=== PATIENT | female | born 1935 | race Caucasian/White ===

== ENCOUNTER 2018-07-16 12:03 | Inpatient (IN) | payer MEDICARE ==
--- NOTE | 2018-07-16 12:13 | ER Document Report ---
ED General - General Stated Complaint: POSSIBLE STROKE Time Seen by Provider: 07/16/18 12:12 Notes: 83-year-old female to the emergency department for evaluation of altered mental status. Patient apparently had some difficulty with speech earlier today. EMS arrived and noted that she had right-sided facial droop and right upper extremity weakness. Unknown time of onset but last known time that she was well was sometime last night. Daughter arrived as well. Did confirm that there was something that was definitely not baseline for her. EMS transported here. Due to the unknown time of onset and last known well was approximately 12 hours ago patient was brought to her room but not immediately taken to CT scan. By the time this physician arrived to evaluate the patient patient's symptoms had 100% resolved. - HPI Onset/Duration: Better Quality of pain: No pain - Related Data Allergies/Adverse Reactions: No Known Allergies Allergy (Unverified 07/16/18 12:21) Past Medical History - General Information source: Patient, Relative, [facility] Records - Social History Smoking Status: Never Smoker Cigarette use (# per day): No Frequency of alcohol use: None Drug Abuse: None Lives with: Jail Family History: Reviewed & Not Pertinent - Medical History Notes: Dementia/Alzheimer's. Review of Systems - Review of Systems Notes: Constitutional: denies: Chills, Diaphoresis, Fever, Malaise, Weakness EENT: denies: Eye discharge, Blurred vision, Tearing, Double vision, Nose congestion, Nose discharge, Throat swelling, Mouth pain Cardiovascular: denies: Palpitations, Heart racing, Orthopnea, Dyspnea, Chest pain Respiratory: denies: Cough, Hurts to breathe, Wheezing, Shortness of breath Gastrointestinal: denies: Abdominal pain, Diarrhea, Nausea, Vomiting, Black stools, bright red blood in stool Genitourinary: denies: Burning, Dysuria, Discharge, Frequency, Flank pain, Hematuria Musculoskeletal: denies: Joint pain, Joint swelling, Muscle pain, Muscle stiffness, back pain Hematologic/Lymphatic: denies: Anemia, Easy bleeding, Easy bruising, Blood clots Neurological/Psychological: Reported slurred speech and right upper extremity weakness Skin: No lesions, no masses,. Patient has numerous areas of skin tears due to frail skin. Multiple chronic stages of healing. Physical Exam - Vital signs Vitals: Resp 18 07/16/18 12:16 Interpretation: Normal - General General appearance: Appears well, Alert - HEENT Head: Normocephalic, Atraumatic Eyes: Normal Pupils: PERRL Neck: Normal - Respiratory Respiratory status: No respiratory distress Chest status: Nontender Breath sounds: Normal Chest palpation: Normal - Cardiovascular Rhythm: Regular Heart sounds: Normal auscultation Murmur: No - Abdominal Inspection: Normal Distension: No distension Bowel sounds: Normal Tenderness: Nontender Organomegaly: No organomegaly - Extremities General upper extremity: Normal inspection, Nontender General lower extremity: Normal inspection, Nontender, Other - Remarkable stiffness and range of motion of the knees bilaterally - Neurological Cognition: Short term memory loss Orientation: AAOx4 [place] Coma Scale Eye Opening: Spontaneous [place] Coma Scale Verbal: Oriented Tank Coma Scale Motor: Obeys Commands Tank Coma Scale Total: 15 Speech: Normal Cranial nerves: Normal Cerebellar coordination: Normal Additional motor exam normals: Equal transport conductor. No: Pronator drift Sensory: Normal - Skin Skin Temperature: Warm Skin Moisture: Dry Skin Color: Other - Multiple areas of skin tears bilateral lower extremities with chronic appearance. Course - Re-evaluation Re-evalutation: 07/16/18 13:15 At this time patient's symptoms are mostly resolved. Not a good candidate for an MRI as patient has a pacemaker. Will do head CT basic labs and reassess. 07/16/18 15:05 Labs reveal quite significant UTI. We will treat her with some antibiotics and fluid at this time. Blood sugar was a little low but not dangerous. We will give her some D5 half-normal while giving her some antibiotics. Had a long discussion with the patient's daughter. Explained that with severe dementia and worsening neurological symptoms there is not a whole lot that we could do. She is understandable. Has a safe place to go. At this time will reevaluate after antibiotics are complete versus admitting. At this time I favor discharge. - Vital Signs Vital signs: Temp Pulse Resp BP Pulse Ox 97.7 F 62 19 143/80 H 93 07/16/18 12:36 07/16/18 13:17 07/16/18 14:01 07/16/18 14:01 07/16/18 14:01 - Laboratory Result Diagrams: 07/16/18 13:15 07/16/18 14:05 Laboratory results interpreted by me: 07/16/18 07/16/18 07/16/18 13:15 13:26 14:05 RBC 3.64 L Hgb 11.4 L Hct 32.4 L RDW 14.4 H Glucose 69 L Total Protein 5.9 L Albumin 2.7 L Urine Protein 30 H Urine Blood SMALL H Urine Nitrite POSITIVE H Urine Urobilinogen 2.0 H Ur Leukocyte Esterase LARGE H - EKG Interpretation by Me Additional EKG results interpreted by me: 07/16/18 13:16 Atrial paced complexes. No obvious ST elevation or depression. No significant change from prior. Discharge - Discharge Clinical Impression: Delirium due to another medical condition Urinary tract infection Qualifiers: Urinary tract infection type: site unspecified Hematuria presence: without hematuria Qualified Code(s): N39.0 - Urinary tract infection, site not specified Condition: Good Disposition: HOME-SNF (ED ONLY) Instructions: Urinary Tract Infection ([facility]), Altered Mental Status ([facility]) Additional Instructions: Continue to keep a close eye on patient's symptoms. In the event that she is getting worse please have her reevaluated. It does not appear that she has had a massive stroke. We did find a very significant bladder infection. We feel that it is best to treat her at this time. We will use antibiotics for the next week. This should clear. Encourage hydration and nutrition. Return immediately for any worsening symptoms or concerns. Prescriptions: Cefdinir [Omnicef 300 mg Capsule] 1 cap PO BID 7 Days #14 capsule Referrals: SANIA STEVENS MD [Primary Care Provider] - Follow up as needed
--- NOTE | 2018-07-16 13:21 | RADIOLOGY REPORT (SQ) ---
EXAM DESCRIPTION: CT HEAD WITHOUT COMPLETED DATE/TIME: 07/16/2018 1:03 pm REASON FOR STUDY: altered mental status COMPARISON: None. TECHNIQUE: Axial images acquired through the brain without intravenous contrast. Images reviewed wi th bone, brain and subdural windows. Additional sagittal and coronal reconstructions were generated. Images stored on PACS. All CT scanners at this facility use dose modulation, iterative reconstruction, and/or weight based d osing when appropriate to reduce radiation dose to as low as reasonably achievable (ALARA). [facility]: Dose Right [facility]: CareDose [facility]: Dose Right [facility]: Teradose 4D [facility]: Smart Futon RADIATION DOSE: CT Rad equipment meets quality standard of care and radiation dose reduction techniq ues were employed. CTDIvol: 53.2 - 55.2 mGy. DLP: 2046 mGy-cm. mGy. LIMITATIONS: None. FINDINGS: VENTRICLES: Prominent ventricles secondary to involutional atrophy. CEREBRUM: No masses. No hemorrhage. No midline shift. No evidence for acute infarction. Extensive areas of low density in the white matter most likely chronic small vessel ischemic changes. CEREBELLUM: No masses. No hemorrhage. No alteration of density. No evidence for acute infarction. EXTRAAXIAL SPACES: No fluid collections. No masses. ORBITS AND GLOBE: No intra- or extraconal masses. Normal contour of globe without masses. CALVARIUM: No fracture. PARANASAL SINUSES: No fluid or mucosal thickening. SOFT TISSUES: No mass or hematoma. OTHER: No other significant finding. IMPRESSION: MICROVASCULAR ISCHEMIA AND GENERALIZED ATROPHY. NO ACUTE IMAGING FINDINGS IN THE BRAIN EVIDENCE OF ACUTE STROKE: NO. COMMENT: Quality ID # [id number]: Final reports with documentation of one or more dose reduction techniques (e.g., Automated exposure control, adjustment of the mA and/or kV according to patient size, use of iterative reconstruction technique) TECHNICAL DOCUMENTATION: JOB ID: [id number] [employer]- All Rights Reserved Reading location - IP/workstation name: [email or web address]
[2018-07-16 13:29] LABS: ABSOLUTE EOSINOPHILS # (AUTO) 0.1 10^3/uL (0.0-0.6); ABSOLUTE LYMPHOCYTES (AUTO) 1.6 10^3/uL (0.5-4.7); ABSOLUTE MONOCYTES (AUTO) 0.7 10^3/uL (0.1-1.4); ABSOLUTE NEUT (AUTO) 6.7 10^3/uL (1.7-8.2); BASOPHILS % (AUTO) 0.5 % (0-2); EOSINOPHILS % (AUTO) 1.3 % (0-6); HEMATOCRIT 32.4 % (36.0-47.0); HEMOGLOBIN 11.4 g/dL (12.0-15.5); LYMPHOCYTES % (AUTO) 17.3 % (13-45); MEAN CORPUSCULAR HEMOGLOBIN 31.3 pg (27.0-33.4); MEAN CORPUSCULAR HGB CONC 35.2 g/dL (32.0-36.0); MEAN CORPUSCULAR VOLUME 89 fl (80-97); PLATELET COUNT 350 10^3/uL (150-450); RED BLOOD COUNT 3.64 10^6/uL (3.72-5.28); RED CELL DISTRIBUTION WIDTH 14.4 % (11.5-14.0); SEGMENTED NEUTROPHILS % (AUTO) 72.9 % (42-78); TOTAL CELLS COUNTED % (AUTO) 100 %; WHITE BLOOD COUNT 9.2 10^3/uL (4.0-10.5)
[2018-07-16 13:50] LABS: APPEARANCE,URINE CLOUDY; BILIRUBIN,URINE NEGATIVE (NEGATIVE); GLUCOSE, URINE NEGATIVE (NEGATIVE); KETONES,URINE NEGATIVE (NEGATIVE); LEUKOCYTE ESTERASE,URINE LARGE (NEGATIVE); NITRITE,URINE POSITIVE (NEGATIVE); PROTEIN,URINE 30 mg/dL (NEGATIVE); URINE SPECIFIC GRAVITY 1.018
[2018-07-16 13:52] LABS: COLOR,URINE YELLOW
--- NOTE | 2018-07-16 13:53 | RADIOLOGY REPORT (SQ) ---
EXAM DESCRIPTION: CHEST SINGLE VIEW COMPLETED DATE/TIME: 07/16/2018 1:09 pm REASON FOR STUDY: sob COMPARISON: None. EXAM PARAMETERS: NUMBER OF VIEWS: One view. TECHNIQUE: Single frontal radiographic view of the chest acquired. RADIATION DOSE: NA LIMITATIONS: None. FINDINGS: LUNGS AND PLEURA: Left hemidiaphragm not well seen, likely due to large retrocardiac hiata l hernia. Basilar airspace disease could not entirely be excluded. Right lung grossly clear. No pleural effusions or pneumothorax. MEDIASTINUM AND HILAR STRUCTURES: Large retrocardiac density likely a hiatal hernia containing the ma jority of the stomach. Fullness in the right paratracheal region likely due to substernal goiter HEART AND VASCULAR STRUCTURES: Marked cardiomegaly BONES: Old right humeral neck fracture. HARDWARE: Left-sided dual lead pacemaker OTHER: No other significant finding. IMPRESSION: Cardiomegaly. Large retrocardiac hiatal hernia. Left basilar airspace disease could not entirely be excluded TECHNICAL DOCUMENTATION: JOB ID: [id number] [employer]- All Rights Reserved Reading location - IP/workstation name: [email or web address]
[2018-07-16] MEDS ORDERED: CEFTRIAXONE INJ 1000 MG VIAL IV ONE (14:17)
[2018-07-16] MEDS ORDERED: NORMAL SALINE 500 ML IV ONE (14:17)
[2018-07-16 14:31] LABS: ALANINE AMINOTRANSFERASE 10 U/L (9-52); ALBUMIN 2.7 g/dL (3.5-5.0); ALKALINE PHOSPHATASE 111 U/L (38-126); ANION GAP 10 (5-19); ASPARTATE AMINO TRANSFERASE 22 U/L (14-36); BILIRUBIN,DIRECT 0.1 mg/dL (0.0-0.4); BILIRUBIN,TOTAL 0.6 mg/dL (0.2-1.3); BLOOD UREA NITROGEN 18 mg/dL (7-20); CALCIUM 8.9 mg/dL (8.4-10.2); CARBON DIOXIDE 29 mmol/L (22-30); CHLORIDE 101 mmol/L (98-107); GLUCOSE 69 mg/dL (75-110); POTASSIUM 3.9 mmol/L (3.6-5.0); SODIUM 139.5 mmol/L (137-145); TOTAL PROTEIN 5.9 g/dL (6.3-8.2)
[2018-07-16] MEDS ORDERED: DEXTROSE 5%-1/2 NORMAL SALINE 500 ML IV ONE (14:56)
--- NOTE | 2018-07-16 18:12 | EKG REPORT ---
SEVERITY:- ABNORMAL ECG - ATRIAL-PACED COMPLEXES PROBABLE INFERIOR INFARCT, AGE INDETERMINATE NONSPECIFIC T ABNORMALITIES, ANT-LAT LEADS BORDERLINE PROLONGED QT INTERVAL : Confirmed by: Raul Aparicio MD 16-Jul-2018 18:11:40
[2018-07-16] MEDS ORDERED: DEXTROSE 50%-WATER 25 GM/50 ML DISP.SYRIN IV ONE (19:01)
[2018-07-16] MEDS ORDERED: DEXTROSE 5%-1/2 NORMAL SALINE 1,000 ML IV ONE (19:01)
[2018-07-16] MEDS ORDERED: DEXTROSE 40% GEL 15 GM TUBE PO PRN ×2 (19:26)
[2018-07-16] MEDS ORDERED: ACETAMINOPHEN 325 MG TABLET PO PRN (19:26)
[2018-07-16] MEDS ORDERED: GLUCAGON,HUMAN RECOMB 1 MG INJ IM PRN (19:26)
[2018-07-16] MEDS ORDERED: DEXTROSE 50%-WATER 25 GM/50 ML DISP.SYRIN IV PRN (19:26)
[2018-07-16] MEDS ORDERED: IPRATROPIUM/ALBUTEROL 0.5-2.5 MG/3 ML AMPUL NEB PRN (19:26)
[2018-07-16] MEDS: HEPARIN SOD (PORCINE) 5,000 UNIT/ML 1 ML SYRINGE SUBCUT SCH (21:29)
[2018-07-16] MEDS: DEXTROSE 50%-WATER 25 GM/50 ML DISP.SYRIN IV PRN (21:34)
[2018-07-17] MEDS: DEXTROSE 50%-WATER 25 GM/50 ML DISP.SYRIN IV PRN (04:35)
[2018-07-17] MEDS: POTASSI CL 20 MEQ/D5-1/2NS 1L 1000 ML IV PRN ×2 (04:48→20:32)
[2018-07-17 05:18] LABS: ABSOLUTE EOSINOPHILS # (AUTO) 0.1 10^3/uL (0.0-0.6); ABSOLUTE LYMPHOCYTES (AUTO) 1.3 10^3/uL (0.5-4.7); ABSOLUTE MONOCYTES (AUTO) 0.4 10^3/uL (0.1-1.4); ABSOLUTE NEUT (AUTO) 4.6 10^3/uL (1.7-8.2); BASOPHILS % (AUTO) 0.4 % (0-2); EOSINOPHILS % (AUTO) 2.1 % (0-6); HEMATOCRIT 30.2 % (36.0-47.0); HEMOGLOBIN 10.3 g/dL (12.0-15.5); LYMPHOCYTES % (AUTO) 19.7 % (13-45); MEAN CORPUSCULAR HEMOGLOBIN 30.6 pg (27.0-33.4); MEAN CORPUSCULAR HGB CONC 34.1 g/dL (32.0-36.0); MEAN CORPUSCULAR VOLUME 90 fl (80-97); MONOCYTES % (AUTO) 5.6 % (3-13); PLATELET COUNT 304 10^3/uL (150-450); RED BLOOD COUNT 3.36 10^6/uL (3.72-5.28); RED CELL DISTRIBUTION WIDTH 14.3 % (11.5-14.0); SEGMENTED NEUTROPHILS % (AUTO) 72.2 % (42-78); TOTAL CELLS COUNTED % (AUTO) 100 %; WHITE BLOOD COUNT 6.4 10^3/uL (4.0-10.5)
[2018-07-17] MEDS: HEPARIN SOD (PORCINE) 5,000 UNIT/ML 1 ML SYRINGE SUBCUT SCH ×3 (05:30→22:11)
--- NOTE | 2018-07-17 05:36 | PDOC H&P ---
History of Present Illness Admission Date/PCP: 07/16/18 19:18 SANIA STEVENS MD Patient complains of: Altered mental status History of Present Illness: ALIYAH DENISE is a 83 year old female assisted living resident with a past medical history of advanced dementia who is unable to provide any history whatsoever. Is brought to the emergency room for evaluation of altered mental status. In the emergency room she is found to have hypoglycemia and pyuria. She is started on dextrose and empiric antibiotics then referred to the hospitalist for admission. Patient denies pain and states feels better but unable to provide further clarification. No known changes to medications. Past Medical History Cardiac Medical History: Reports: Hyperlipidema Denies: Congestive Heart Failure, Myocardial Infarction, Hypertension Pulmonary Medical History: Denies: Asthma, Bronchitis, Chronic Obstructive Pulmonary Disease (COPD), Pneumonia, Tuberculosis Neurological Medical History: Denies: Seizures Renal/ Medical History: Denies: End Stage Renal Disease GI Medical History: Reports: Hiatal Hernia Denies: Cirrhosis, Gastroesophageal Reflux Disease Musculoskeltal Medical History: Reports: Arthritis - generalized Psychiatric Medical History: Reports: Depression Denies: Bipolar Disorder Hematology: Reports: Anemia, Bleeding Tendencies Past Surgical History Past Surgical History: Reports: Hysterectomy Social History Information Source: Emergency Med Personnel, [facility] Records Lives with: Assisted Smoking Status: Former Smoker Frequency of Alcohol Use: None Drugs: None - Advance Directive Resuscitation Status: Do Not Intubate Family History Family History: Other - Unobtainable Parental Family History Reviewed: No - Unobtainable Children Family History Reviewed: No Sibling(s) Family History Reviewed.: No Medication/Allergy Home Medications: Acetaminophen [Tylenol Extra Strength 500 mg Tablet] 500 mg PO Q4HP PRN Alendronate Sodium [Fosamax 70 mg Tablet] 70 mg PO Q7D 07/16/18 Ascorbic Acid [Vitamin C 500 mg Tablet] 500 mg PO QAM 07/16/18 Aspirin [Aspirin 81 mg Chewable Tablet] 81 mg PO QAM 07/16/18 Bupropion HCl [Wellbutrin Xl 150 mg 24hr Tablet] 150 mg PO QAM 07/16/18 Cholecalciferol (Vitamin D3) [Vitamin D3 400 Unit Tablet] 400 unit PO QAM Citalopram Hydrobromide [Celexa 40 mg Tablet] 40 mg PO DAILY@199907/16/18 Cyanocobalamin (Vitamin B-12) [Vitamin B-12 1000 mcg Tablet] 1,000 mcg PO QAM Diclofenac Sodium [Voltaren] 4 gm TOP QID 07/16/18 Docusate Sodium [Colace 100 mg Capsule] 100 mg PO DAILY@199907/16/18 Guaifenesin [Robafen] 10 ml PO Q4HP PRN 07/16/18 Guaifenesin/D-Methorphan Hb [Robafen-Dm Syrup] 10 ml PO Q4HP PRN 07/16/18 Ketoprofen 1 applic TOP QID 07/16/18 Levothyroxine Sodium [Synthroid 0.05 mg Tablet] 0.05 mg PO Q6AM 07/16/18 Loperamide HCl [Anti-Diarrhea] 4 mg PO ASDIR PRN 07/16/18 Mag Hydrox/Al Hydrox/Simeth [Maalox Plus Susp 30 Udcup] 30 ml PO Q4HP PRN Magnesium Hydroxide [Milk of Magnesia 30 ml Udcup] 30 ml PO ASDIR PRN 07/16/18 Melatonin/Pyridoxine [Melatonin 5 mg Tablet] 5 mg PO HSP PRN 07/16/18 Allergies/Adverse Reactions: No Known Allergies Allergy (Unverified 07/16/18 12:21) Review of Systems ROS unobtainable: Due to mental status Physical Exam Vital Signs: Temp Pulse Resp BP Pulse Ox 97.8 F 66 18 157/73 H 100 07/17/18 04:00 07/17/18 04:00 07/17/18 04:00 07/17/18 04:00 07/17/18 04:00 Intake & Output 07/15/18 07/16/18 07/17/18 11:59 11:59 11:59 Intake Total 1000 Balance 1000 Weight 54.9 kg General appearance: PRESENT: no acute distress, cooperative, well-developed, well-nourished, other - Chronically ill-appearing, temporal wasting with flexion contractures and skin tears of all 4 extremities Head exam: PRESENT: atraumatic, normocephalic Eye exam: PRESENT: conjunctiva pink, EOMI, PERRLA. ABSENT: scleral icterus Ear exam: PRESENT: normal external ear exam Mouth exam: PRESENT: moist, tongue midline Neck exam: ABSENT: carotid bruit, JVD, lymphadenopathy, thyromegaly Respiratory exam: PRESENT: clear to auscultation janeen. ABSENT: rales, rhonchi, wheezes Cardiovascular exam: PRESENT: RRR. ABSENT: diastolic murmur, rubs, systolic murmur Pulses: PRESENT: normal dorsalis pedis pul Vascular exam: PRESENT: normal capillary refill GI/Abdominal exam: PRESENT: normal bowel sounds, soft. ABSENT: distended, guarding, mass, organolmegaly, rebound, tenderness Rectal exam: PRESENT: deferred Extremities exam: PRESENT: full ROM. ABSENT: calf tenderness, clubbing, pedal edema Neurological exam: PRESENT: alert, awake, oriented to person, oriented to place , oriented to time, oriented to situation, CN II-XII grossly intact. ABSENT: motor sensory deficit Psychiatric exam: PRESENT: appropriate affect, normal mood. ABSENT: homicidal ideation, suicidal ideation Skin exam: PRESENT: dry, intact, warm. ABSENT: cyanosis, rash Results Laboratory Results: 07/17/18 04:46 07/17/18 04:46 WBC 6.4 RBC 3.36 L Hgb 10.3 L Hct 30.2 L MCV 90 MCH 30.6 MCHC 34.1 RDW 14.3 H Plt Count 304 Seg Neutrophils % 72.2 Lymphocytes % 19.7 Monocytes % 5.6 Eosinophils % 2.1 Basophils % 0.4 Absolute Neutrophils 4.6 Absolute Lymphocytes 1.3 Absolute Monocytes 0.4 Absolute Eosinophils 0.1 Absolute Basophils 0.0 Impressions: Head CT 07/16/18 00:00 IMPRESSION: MICROVASCULAR ISCHEMIA AND GENERALIZED ATROPHY. NO ACUTE IMAGING FINDINGS IN THE BRAIN EVIDENCE OF ACUTE STROKE: NO. Chest X-Ray 07/16/18 12:39 IMPRESSION: Cardiomegaly. Large retrocardiac hiatal hernia. Left basilar airspace disease could not entirely be excluded Assessment & Plan - Diagnosis (1) Hypoglycemia Is this a current diagnosis for this admission?: Yes Plan: Unclear cause suspected hypoglycemic agent, D5 half-normal saline with 20 of potassium, Accu-Cheks every hour hypoglycemic protocol follow-up chemistry (2) Encephalopathy acute Is this a current diagnosis for this admission?: Yes Plan: Acute on chronic secondary to #1. Supportive care (3) Dementia Is this a current diagnosis for this admission?: Yes Plan: Supportive care (4) Urinary tract infection Qualifiers: Urinary tract infection type: site unspecified Hematuria presence: without hematuria Qualified Code(s): N39.0 - Urinary tract infection, site not specified Is this a current diagnosis for this admission?: Yes Plan: Urinary tract infection, empiric antibiotics, follow-up CBC, blood and urine culture - Time Time Spent: 50 to 70 Minutes - Inpatient Certification Medical Necessity: Need Close Monitoring Due to Risk of Patient Decompensation
[2018-07-17 05:47] LABS: ANION GAP 7 (5-19); BLOOD UREA NITROGEN 12 mg/dL (7-20); CARBON DIOXIDE 29 mmol/L (22-30); CHLORIDE 100 mmol/L (98-107); GLUCOSE 252 mg/dL (75-110); SODIUM 136.1 mmol/L (137-145)
[2018-07-17] MEDS: CEFTRIAXONE SODIUM 1,000 MG in DEXTROSE 5%-WATER 50 ML IV SCH (09:58)
[2018-07-17] MEDS ORDERED: CEFTRIAXONE 1 GM/D5W RTU 1 GM/50 ML RTUPB IV SCH (10:00)
[2018-07-17] MEDS ORDERED: (PENDING PHARMACY ID) (Acetaminophen [Tylenol Extra Strength 500 Mg Tablet] 500 MG) PO PRN (14:13)
[2018-07-17] MEDS ORDERED: MAG HYDROX/AL HYDROX/SIMETH SUSP 30 ML UDCUP PO PRN (14:13)
[2018-07-17] MEDS ORDERED: (PENDING PHARMACY ID) (Alendronate Sodium [Fosamax 70 Mg Tablet] 70 MG) PO SCH (14:15)
--- NOTE | 2018-07-17 14:17 | PDOC PROGRESS REPORT ---
Subjective Progress Note for:: 07/17/18 Subjective:: 83 y/o female resident of Assisted Living Facility, admitted overnight with altered mental status and found to have hypoglycemia and UTI. Currently, patient is awake, daughter at bedside. Reports doing much better, mental status improved. Eating better. No cp or sob, no f/c. Reason For Visit: HYPOGLYCEMIA ENCEPHALOPATHY DEMENTIA UTI Physical Exam Vital Signs: Temp Pulse Resp BP Pulse Ox 98.2 F 68 18 146/64 H 99 07/17/18 11:36 07/17/18 11:36 07/17/18 11:36 07/17/18 11:36 07/17/18 11:36 Intake & Output 07/16/18 07/17/18 07/18/18 06:59 06:59 06:59 Intake Total 1000 50 Balance 1000 50 Weight 54.9 kg GENERAL: Well-developed, no acute distress HEENT: Normocephalic/atraumatic NECK supple, no JVD CARDIOVASCULAR: RRR, normal S1-S2 LUNGS: CTA bilaterally ABDOMEN: Soft, NT, NL bowel sounds EXTREMITIES: No edema, clubbing, cyanosis NEUROLOGICAL: Alert, oriented to name, no acute weakness Results Laboratory Results: 07/17/18 04:46 07/17/18 04:46 07/17/18 07/17/18 04:46 04:46 WBC 6.4 RBC 3.36 L Hgb 10.3 L Hct 30.2 L MCV 90 MCH 30.6 MCHC 34.1 RDW 14.3 H Plt Count 304 Seg Neutrophils % 72.2 Lymphocytes % 19.7 Monocytes % 5.6 Eosinophils % 2.1 Basophils % 0.4 Absolute Neutrophils 4.6 Absolute Lymphocytes 1.3 Absolute Monocytes 0.4 Absolute Eosinophils 0.1 Absolute Basophils 0.0 Sodium 136.1 L Potassium 4.0 Chloride 100 Carbon Dioxide 29 Anion Gap 7 BUN 12 Creatinine 0.55 Est GFR ( Amer) > 60 Est GFR (Non-Af Amer) > 60 Glucose 252 H Calcium 8.0 L Impressions: Head CT 07/16/18 00:00 IMPRESSION: MICROVASCULAR ISCHEMIA AND GENERALIZED ATROPHY. NO ACUTE IMAGING FINDINGS IN THE BRAIN EVIDENCE OF ACUTE STROKE: NO. Chest X-Ray 07/16/18 12:39 IMPRESSION: Cardiomegaly. Large retrocardiac hiatal hernia. Left basilar airspace disease could not entirely be excluded Assessment & Plan - Diagnosis (1) Urinary tract infection Qualifiers: Urinary tract infection type: site unspecified Hematuria presence: without hematuria Qualified Code(s): N39.0 - Urinary tract infection, site not specified Is this a current diagnosis for this admission?: Yes (2) Hypoglycemia Is this a current diagnosis for this admission?: Yes (3) Dementia Is this a current diagnosis for this admission?: Yes (4) Encephalopathy acute Is this a current diagnosis for this admission?: Yes - Plan Summary Plan Summary: Patient improving. Daughter at bedside. Mental status has improved, as has hypoglycemia. Suspect altered mental status secondary to a combination of UTI and hypoglycemia, and hypoglycemia likely secondary to UTI and patient had decreased p.o. intake. She is eating better today. Continue to monitor blood sugars and to hold any anti-hyperglycemic at this time. Urine culture growing gram negative rods, please follow identification and sensitivity. Will continue Rocephin for now. Patient could possibly be discharged back to assisted living facility tomorrow if continues to improve and urine culture bug identified/sensitivities available.
[2018-07-17] MEDS ORDERED: ACETAMINOPHEN SOLN 325 MG/10.15 ML UDCUP PO PRN (14:49)
[2018-07-17] MEDS ORDERED: (PENDING PHARMACY ID) (Diclofenac Sodium [Voltaren] 4 GM) TOP SCH (18:00)
[2018-07-17] MEDS ORDERED: (PENDING PHARMACY ID) (Citalopram Hydrobromide [Celexa 40 Mg Tablet] 40 MG) PO SCH (20:00)
[2018-07-17] MEDS ORDERED: MAGNESIUM HYDROXIDE SUSP 30 ML UDCUP PO PRN (22:00)
[2018-07-17] MEDS: CITALOPRAM HYDROBROMIDE 20 MG TABLET PO SCH (22:10)
[2018-07-17] MEDS: BUPROPION HCL 75 MG TABLET PO SCH (22:10)
[2018-07-17] MEDS: DOCUSATE SODIUM 100 MG CAPSULE PO SCH (22:11)
[2018-07-18] MEDS: LEVOTHYROXINE SODIUM 0.05 MG TABLET PO SCH (06:00)
[2018-07-18] MEDS: HEPARIN SOD (PORCINE) 5,000 UNIT/ML 1 ML SYRINGE SUBCUT SCH ×3 (06:24→21:44)
[2018-07-18] MEDS ORDERED: (PENDING PHARMACY ID) (Bupropion Hcl [Wellbutrin Xl 150 Mg 24hr Tablet] 150 MG) PO SCH (08:00)
[2018-07-18] MEDS: POTASSI CL 20 MEQ/D5-1/2NS 1L 1000 ML IV PRN ×2 (08:46→22:43)
[2018-07-18] MEDS: ASCORBIC ACID 500 MG TABLET PO SCH (09:53)
[2018-07-18] MEDS: CYANOCOBALAMIN (VITAMIN B-12) 1,000 MCG TABLET PO SCH (09:53)
[2018-07-18] MEDS: ASPIRIN 81 MG TABLET, CHEWABLE PO SCH (09:53)
[2018-07-18] MEDS: CHOLECALCIFEROL (D3) 400 UNIT TABLET PO SCH (09:53)
[2018-07-18] MEDS: CEFTRIAXONE SODIUM 1,000 MG in DEXTROSE 5%-WATER 50 ML IV SCH (09:54)
[2018-07-18] MEDS: BUPROPION HCL 75 MG TABLET PO SCH ×2 (09:54→21:44)
--- NOTE | 2018-07-18 17:38 | PDOC PROGRESS REPORT ---
Subjective Progress Note for:: 07/18/18 - seen on rounds this morning and afternoon with daughter Subjective:: seems to be some what confused- knows her name- not sure of her , time/place Reason For Visit: UTI,HYPOGLYCEMIA Physical Exam Vital Signs: Temp Pulse Resp BP Pulse Ox 98.3 F 73 20 167/70 H 98 07/18/18 11:19 07/18/18 14:00 07/18/18 11:19 07/18/18 11:19 07/18/18 11:19 Intake & Output 07/17/18 07/18/18 07/19/18 06:59 06:59 06:59 Intake Total 1000 1290 917 Output Total 1080 Balance 1000 210 917 Weight 121 lb 0.54 oz 134 lb 4.184 oz General appearance: PRESENT: no acute distress Head exam: PRESENT: atraumatic, normocephalic Eye exam: PRESENT: EOMI. ABSENT: scleral icterus Ear exam: PRESENT: normal external ear exam Mouth exam: PRESENT: tongue midline Teeth exam: PRESENT: poor dentation Neck exam: ABSENT: tracheal deviation Respiratory exam: PRESENT: decreased breath sounds - poor inspiratory effort, symmetrical Cardiovascular exam: PRESENT: +S1, +S2 Pulses: PRESENT: +2 pedal pulses bilateral GI/Abdominal exam: PRESENT: normal bowel sounds, soft. ABSENT: tenderness Extremities exam: ABSENT: +2 edema Neurological exam: PRESENT: alert, altered, awake, oriented to person, CN II- XII grossly intact. ABSENT: oriented to place, oriented to time, oriented to situation Skin exam: PRESENT: dry, warm Results Laboratory Results: 07/17/18 04:46 07/17/18 04:46 Impressions: Head CT 07/16/18 00:00 IMPRESSION: MICROVASCULAR ISCHEMIA AND GENERALIZED ATROPHY. NO ACUTE IMAGING FINDINGS IN THE BRAIN EVIDENCE OF ACUTE STROKE: NO. Chest X-Ray 07/16/18 12:39 IMPRESSION: Cardiomegaly. Large retrocardiac hiatal hernia. Left basilar airspace disease could not entirely be excluded Assessment & Plan - Diagnosis (1) Encephalopathy acute Is this a current diagnosis for this admission?: Yes (2) Urinary tract infection Qualifiers: Urinary tract infection type: site unspecified Hematuria presence: without hematuria Qualified Code(s): N39.0 - Urinary tract infection, site not specified Is this a current diagnosis for this admission?: Yes (3) Hypoglycemia Is this a current diagnosis for this admission?: Yes (4) Dementia Is this a current diagnosis for this admission?: Yes - Time Time Spent with patient: 15-24 minutes - Plan Summary Plan Summary: Acute encephalopathy- i think this is acute on chronic encephalopathy- she has underlying dementia- i have spoken with daughter about this today. i think her UTI and hypoglycemia has made her condition worse. she does know her name- not sure about time/place. daughter states she much more worse than her usual self - i am not so sure if she is worse - i think she has advance dementia and she's close to her baseline. i will re-evaluate her tomorrow. CT head shows chronic changes. UTI- c/w Rocephin, started on 07/16/18- her UCx did grow Eneterobacter which is sensitive to rocephin. hopefully we can transition her to PO when ready for discharge Hypoglycemia- unclear etiology. ?UTI vs poor oral intake. she's on D5W - will try to wean her off of it. Diet - in the ED she was thought to be having a stroke and hence placed on a pureed diet- daughter is not happy about this- hence i will order speech and swallow. daughter requests soft food with chopped meat- i have granted her wishes. daughter tells me that is what she was eating at home.
[2018-07-18] MEDS: CITALOPRAM HYDROBROMIDE 20 MG TABLET PO SCH (21:43)
[2018-07-18] MEDS: DOCUSATE SODIUM 100 MG CAPSULE PO SCH (21:44)
[2018-07-19 05:52] LABS: ABSOLUTE BASOPHILS # (AUTO) 0.1 10^3/uL (0.0-0.2); ABSOLUTE EOSINOPHILS # (AUTO) 0.2 10^3/uL (0.0-0.6); ABSOLUTE LYMPHOCYTES (AUTO) 2.3 10^3/uL (0.5-4.7); ABSOLUTE MONOCYTES (AUTO) 0.7 10^3/uL (0.1-1.4); ABSOLUTE NEUT (AUTO) 4.4 10^3/uL (1.7-8.2); EOSINOPHILS % (AUTO) 2.9 % (0-6); HEMATOCRIT 32.8 % (36.0-47.0); LYMPHOCYTES % (AUTO) 29.6 % (13-45); MEAN CORPUSCULAR HEMOGLOBIN 29.7 pg (27.0-33.4); MEAN CORPUSCULAR HGB CONC 33.4 g/dL (32.0-36.0); MEAN CORPUSCULAR VOLUME 89 fl (80-97); MONOCYTES % (AUTO) 9.6 % (3-13); PLATELET COUNT 372 10^3/uL (150-450); RED BLOOD COUNT 3.68 10^6/uL (3.72-5.28); RED CELL DISTRIBUTION WIDTH 14.5 % (11.5-14.0); SEGMENTED NEUTROPHILS % (AUTO) 56.9 % (42-78); TOTAL CELLS COUNTED % (AUTO) 100 %; WHITE BLOOD COUNT 7.8 10^3/uL (4.0-10.5)
[2018-07-19] MEDS: HEPARIN SOD (PORCINE) 5,000 UNIT/ML 1 ML SYRINGE SUBCUT SCH ×3 (05:57→21:47)
[2018-07-19] MEDS: LEVOTHYROXINE SODIUM 0.05 MG TABLET PO SCH (05:57)
[2018-07-19 06:10] LABS: ANION GAP 6 (5-19); BLOOD UREA NITROGEN 6 mg/dL (7-20); CALCIUM 8.6 mg/dL (8.4-10.2); CARBON DIOXIDE 28 mmol/L (22-30); CHLORIDE 105 mmol/L (98-107); GLUCOSE 78 mg/dL (75-110); POTASSIUM 4.3 mmol/L (3.6-5.0); SODIUM 139.3 mmol/L (137-145)
[2018-07-19] MEDS: ASCORBIC ACID 500 MG TABLET PO SCH (08:14)
[2018-07-19] MEDS: CHOLECALCIFEROL (D3) 400 UNIT TABLET PO SCH (08:14)
[2018-07-19] MEDS: ASPIRIN 81 MG TABLET, CHEWABLE PO SCH (08:14)
[2018-07-19] MEDS: CYANOCOBALAMIN (VITAMIN B-12) 1,000 MCG TABLET PO SCH (08:14)
[2018-07-19] MEDS: CEFTRIAXONE SODIUM 1,000 MG in DEXTROSE 5%-WATER 50 ML IV SCH (09:24)
[2018-07-19] MEDS: BUPROPION HCL 75 MG TABLET PO SCH ×2 (09:24→21:47)
--- NOTE | 2018-07-19 13:20 | PDOC PROGRESS REPORT ---
Subjective Progress Note for:: 07/19/18 - seen on rounds this morning Subjective:: remains confused- asks me "what do you want". she told me her first name but unable to answer my other questions. Reason For Visit: UTI,HYPOGLYCEMIA Physical Exam Vital Signs: Temp Pulse Resp BP Pulse Ox 98.2 F 79 16 141/62 H 95 07/19/18 11:16 07/19/18 11:16 07/19/18 11:16 07/19/18 11:16 07/19/18 11:16 Intake & Output 07/18/18 07/19/18 07/20/18 06:59 06:59 06:59 Intake Total 1290 2103 Output Total 1080 700 Balance 210 1403 Weight 134 lb 4.184 oz 130 lb 15.273 oz General appearance: PRESENT: no acute distress Head exam: PRESENT: atraumatic, normocephalic Eye exam: PRESENT: EOMI. ABSENT: scleral icterus Mouth exam: ABSENT: tongue midline Neck exam: ABSENT: tracheal deviation Respiratory exam: PRESENT: clear to auscultation janeen, symmetrical Cardiovascular exam: PRESENT: +S1, +S2 Pulses: PRESENT: +2 pedal pulses bilateral GI/Abdominal exam: PRESENT: normal bowel sounds, soft. ABSENT: tenderness Extremities exam: ABSENT: pedal edema Neurological exam: PRESENT: alert, awake, oriented to person, CN II-XII grossly intact. ABSENT: oriented to place, oriented to time, oriented to situation Skin exam: PRESENT: dry, warm, other - superficial skin tears noted in arms and legs Results Laboratory Results: 07/19/18 05:03 07/19/18 05:03 07/19/18 07/19/18 05:03 05:03 WBC 7.8 RBC 3.68 L Hgb 11.0 L Hct 32.8 L MCV 89 MCH 29.7 MCHC 33.4 RDW 14.5 H Plt Count 372 Seg Neutrophils % 56.9 Lymphocytes % 29.6 Monocytes % 9.6 Eosinophils % 2.9 Basophils % 1.0 Absolute Neutrophils 4.4 Absolute Lymphocytes 2.3 Absolute Monocytes 0.7 Absolute Eosinophils 0.2 Absolute Basophils 0.1 Sodium 139.3 Potassium 4.3 Chloride 105 Carbon Dioxide 28 Anion Gap 6 BUN 6 L Creatinine 0.64 Est GFR ( Amer) > 60 Est GFR (Non-Af Amer) > 60 Glucose 78 Calcium 8.6 Impressions: Head CT 07/16/18 00:00 IMPRESSION: MICROVASCULAR ISCHEMIA AND GENERALIZED ATROPHY. NO ACUTE IMAGING FINDINGS IN THE BRAIN EVIDENCE OF ACUTE STROKE: NO. Chest X-Ray 07/16/18 12:39 IMPRESSION: Cardiomegaly. Large retrocardiac hiatal hernia. Left basilar airspace disease could not entirely be excluded Assessment & Plan - Diagnosis (1) Encephalopathy acute Is this a current diagnosis for this admission?: Yes (2) Urinary tract infection Qualifiers: Urinary tract infection type: site unspecified Hematuria presence: without hematuria Qualified Code(s): N39.0 - Urinary tract infection, site not specified Is this a current diagnosis for this admission?: Yes (3) Hypoglycemia Is this a current diagnosis for this admission?: Yes (4) Dementia Is this a current diagnosis for this admission?: Yes - Time Time Spent with patient: 15-24 minutes - Plan Summary Plan Summary: Acute encephalopathy- she has underlying dementia and not sure what her baseline is- i have spoken with daughter- she believes this is acute. i think her UTI and hypoglycemia has made her condition worse. she does know her name- not sure about time/place. 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 CT head shows chronic changes. UTI- c/w Rocephin, started on 07/16/18- her UCx did grow Eneterobacter which is sensitive to rocephin. hopefully we can transition her to PO when ready for discharge. spoke with daughter today and she's worried about sepsis- wants blood cultures drawn- she's worried her mother has sepsis and hence that is what is causing her mentation to be wors Hypoglycemia- unclear etiology. ?UTI vs poor oral intake. i have stopped her D5 today. encourage PO intake. Diet - in the ED she was thought to be having a stroke and hence placed on a pureed diet- daughter is not happy about this- hence i will order speech and swallow. daughter requests soft food with chopped meat- i have granted her wishes. daughter tells me that is what she was eating at home. disposition- hopefully d/c back to assisted living in AM if her BCx is negative and her hypoglycemia is resolved off the D5
[2018-07-19] MEDS: DOCUSATE SODIUM 100 MG CAPSULE PO SCH (20:10)
[2018-07-19] MEDS: CITALOPRAM HYDROBROMIDE 20 MG TABLET PO SCH (20:10)
[2018-07-20] MEDS: HEPARIN SOD (PORCINE) 5,000 UNIT/ML 1 ML SYRINGE SUBCUT SCH ×3 (05:34→23:54)
[2018-07-20] MEDS: LEVOTHYROXINE SODIUM 0.05 MG TABLET PO SCH (05:34)
[2018-07-20] MEDS: ASCORBIC ACID 500 MG TABLET PO SCH ×2 (07:15→08:51)
[2018-07-20] MEDS: CHOLECALCIFEROL (D3) 400 UNIT TABLET PO SCH ×2 (07:15→08:52)
[2018-07-20] MEDS: CYANOCOBALAMIN (VITAMIN B-12) 1,000 MCG TABLET PO SCH ×2 (07:15→08:51)
[2018-07-20] MEDS: ASPIRIN 81 MG TABLET, CHEWABLE PO SCH ×2 (07:15→08:50)
[2018-07-20] MEDS: CEFTRIAXONE SODIUM 1,000 MG in DEXTROSE 5%-WATER 50 ML IV SCH (09:40)
[2018-07-20 10:09] LABS: ABSOLUTE EOSINOPHILS # (AUTO) 0.2 10^3/uL (0.0-0.6); ABSOLUTE LYMPHOCYTES (AUTO) 1.9 10^3/uL (0.5-4.7); ABSOLUTE MONOCYTES (AUTO) 0.5 10^3/uL (0.1-1.4); ABSOLUTE NEUT (AUTO) 4.5 10^3/uL (1.7-8.2); BASOPHILS % (AUTO) 0.6 % (0-2); EOSINOPHILS % (AUTO) 2.5 % (0-6); HEMATOCRIT 31.8 % (36.0-47.0); HEMOGLOBIN 10.6 g/dL (12.0-15.5); LYMPHOCYTES % (AUTO) 26.3 % (13-45); MEAN CORPUSCULAR HEMOGLOBIN 29.7 pg (27.0-33.4); MEAN CORPUSCULAR HGB CONC 33.5 g/dL (32.0-36.0); MEAN CORPUSCULAR VOLUME 89 fl (80-97); MONOCYTES % (AUTO) 6.8 % (3-13); PLATELET COUNT 384 10^3/uL (150-450); RED BLOOD COUNT 3.58 10^6/uL (3.72-5.28); RED CELL DISTRIBUTION WIDTH 14.7 % (11.5-14.0); SEGMENTED NEUTROPHILS % (AUTO) 63.8 % (42-78); TOTAL CELLS COUNTED % (AUTO) 100 %; WHITE BLOOD COUNT 7.1 10^3/uL (4.0-10.5)
[2018-07-20 10:31] LABS: ALANINE AMINOTRANSFERASE 7 U/L (9-52); ALBUMIN 2.7 g/dL (3.5-5.0); ALKALINE PHOSPHATASE 116 U/L (38-126); ANION GAP 6 (5-19); ASPARTATE AMINO TRANSFERASE 26 U/L (14-36); BILIRUBIN,DIRECT 0.2 mg/dL (0.0-0.4); BILIRUBIN,TOTAL 0.3 mg/dL (0.2-1.3); BLOOD UREA NITROGEN 7 mg/dL (7-20); CALCIUM 9.1 mg/dL (8.4-10.2); CARBON DIOXIDE 31 mmol/L (22-30); CHLORIDE 102 mmol/L (98-107); GLUCOSE 80 mg/dL (75-110); POTASSIUM 4.6 mmol/L (3.6-5.0); SODIUM 139.3 mmol/L (137-145); TOTAL PROTEIN 5.9 g/dL (6.3-8.2)
[2018-07-20] MEDS: BUPROPION HCL 75 MG TABLET PO SCH (10:33)
[2018-07-20 11:07] LABS: ERYTHROCYTE SEDIMENTATION RATE 51 mm/hr (0-30)
--- NOTE | 2018-07-20 12:20 | PSYCHOLOGICAL NOTE ---
Psych Note - Psych Note Date seen by psych provider: 07/20/18 Time seen by psych provider: 15:05 Psych Note: Reason for consult:AMS changes; evaluate antidepressant medications 83-year-old female to the emergency department for evaluation of altered mental status; patient has existing diagnosis of dementia. Patient was found to have hypoglycemia and UTI. Patient was sleeping upon entry to room. Patient's daughter Estella discussed medication recommendations with clinician. She reports the patient had an increase in altered mental status from baseline most likely due to UTI. She would like to review the medication recommendations per [facility] s contracted psychiatrist Dr. Radha SALEEM with a family friend and then discussed with the attending physician if they are in agreement to the recommendations. Head CT 07/16/18 00:00 IMPRESSION: MICROVASCULAR ISCHEMIA AND GENERALIZED ATROPHY. NO ACUTE IMAGING FINDINGS IN THE BRAIN EVIDENCE OF ACUTE STROKE: NO. Medication recommendations per [facility]'s contracted psychiatrist Dr. Radha SALEEM are as follows please decrease home medication of Wellbutrin to 75 mg daily for 5 days then discontinue Please decrease home medication of Celexa to 20 mg daily for 5 days then discontinue Please add Depakote 500 mg twice daily Please add BuSpar 5 mg every morning and 10 mg nightly Impression\plan: Patient is cleared from acute psychiatric services. Patient has a pre-existing diagnosis of dementia. Patient was found to have both hypoglycemia and UTI. Patient's altered mental status most likely was due to her acute medical conditions. Medication recommendations have been provided. Attending physicians are asked to consider not prescribing benzodiazepines and antipsychotics as they can increase symptoms of confusion, agitation, and psychosis in patients with neurodegenerative diseases. Dr. Luong was consulted and the care management of this patient; attending physician was in agreement with recommendations and disposition.
--- NOTE | 2018-07-20 16:23 | PDOC PROGRESS REPORT ---
Subjective Progress Note for:: 07/20/18 - seen on rounds this morning Subjective:: came to see patient this morning - called her name- she opened her eyes- i asked her for her name- she did respond at first but then said jens. i asked if she has any pain- she told me "no"- it took her some effort to answer to me. she seems ?sleepy ?lethargic than yesterday morning. spoke with nursing- no acute events overnight reports to me. Reason For Visit: UTI,HYPOGLYCEMIA Physical Exam Vital Signs: Temp Pulse Resp BP Pulse Ox 97.9 F 68 16 140/91 H 96 07/20/18 14:51 07/20/18 14:51 07/20/18 14:51 07/20/18 14:51 07/20/18 14:51 Intake & Output 07/19/18 07/20/18 07/21/18 06:59 06:59 06:59 Intake Total 1186 1551 50 Output Total 700 Balance 486 1551 50 Weight 130 lb 15.273 oz 126 lb 8.725 oz General appearance: PRESENT: no acute distress, other - sleepy and lethargic this morning Head exam: PRESENT: atraumatic, normocephalic Eye exam: ABSENT: conjunctival injection, scleral icterus Ear exam: PRESENT: normal external ear exam Mouth exam: PRESENT: tongue midline Neck exam: ABSENT: tracheal deviation Respiratory exam: PRESENT: decreased breath sounds - bilaterally- ?poor inspiratory effort, symmetrical. ABSENT: rhonchi, wheezes Cardiovascular exam: PRESENT: +S1, +S2 Pulses: PRESENT: +1 pedal pulses bilateral GI/Abdominal exam: PRESENT: normal bowel sounds, soft. ABSENT: tenderness Extremities exam: ABSENT: pedal edema Neurological exam: PRESENT: altered, CN II-XII grossly intact, other - slow mentation- responds slowly with yes and now answer- unable to tell me much. did tell me her first name but that was all. unable to tell me time/place. Skin exam: PRESENT: dry, skin tears - superficial throughout body, warm Results Laboratory Results: 07/20/18 09:50 07/20/18 09:50 07/20/18 07/20/18 07/20/18 09:50 09:50 09:50 WBC 7.1 RBC 3.58 L Hgb 10.6 L Hct 31.8 L MCV 89 MCH 29.7 MCHC 33.5 RDW 14.7 H Plt Count 384 Seg Neutrophils % 63.8 Lymphocytes % 26.3 Monocytes % 6.8 Eosinophils % 2.5 Basophils % 0.6 Absolute Neutrophils 4.5 Absolute Lymphocytes 1.9 Absolute Monocytes 0.5 Absolute Eosinophils 0.2 Absolute Basophils 0.0 Sodium 139.3 Potassium 4.6 Chloride 102 Carbon Dioxide 31 H Anion Gap 6 BUN 7 Creatinine 0.70 Est GFR ( Amer) > 60 Est GFR (Non-Af Amer) > 60 Glucose 80 Calcium 9.1 Magnesium 1.7 Total Bilirubin 0.3 AST 26 ALT 7 L Alkaline Phosphatase 116 Ammonia < 8.7 L Total Protein 5.9 L Albumin 2.7 L Vitamin B12 > 1000.0 H 07/20/18 09:50 Troponin I < 0.012 Impressions: Head CT 07/16/18 00:00 IMPRESSION: MICROVASCULAR ISCHEMIA AND GENERALIZED ATROPHY. NO ACUTE IMAGING FINDINGS IN THE BRAIN EVIDENCE OF ACUTE STROKE: NO. Chest X-Ray 07/16/18 12:39 IMPRESSION: Cardiomegaly. Large retrocardiac hiatal hernia. Left basilar airspace disease could not entirely be excluded Assessment & Plan - Diagnosis (1) Encephalopathy acute Is this a current diagnosis for this admission?: Yes (2) Urinary tract infection Qualifiers: Urinary tract infection type: site unspecified Hematuria presence: without hematuria Qualified Code(s): N39.0 - Urinary tract infection, site not specified Is this a current diagnosis for this admission?: Yes (3) Hypoglycemia Is this a current diagnosis for this admission?: Yes (4) Dementia Is this a current diagnosis for this admission?: Yes - Time Time Spent with patient: 15-24 minutes - Plan Summary Plan Summary: Acute encephalopathy- she has underlying dementia and I am not sure what her baseline is- i have spoken with daughter yesterday - she believes this is acute and no chronic. i think her UTI and hypoglycemia has made her condition worse. she does know her name- not sure about time/place. daughter yesterday told me that her mother is worse than baseline- i am not so sure if she is worse - i think she has advanced dementia and she's close to her baseline. CT head shows chronic changes. this morning she does look a little more lethargic and sleepy- i did wake her up from sleepy to examine her- there was nothing reported to me overnight. although she is limited with her mobility outside of hospital- i will go head an order PT and see they have to say about her strength now- it would help with her disposition planning. since i am uncertain of the etiology about her lethargy this morning- i will check CBC, CMP, Mag, B1, B12, RPR, Vit D , Ammonia, and troponin levels. UTI- c/w Rocephin, started on 07/16/18- her UCx did grow Eneterobacter which is sensitive to rocephin. hopefully we can transition her to PO when ready for discharge. yesterday daughter wanted blood cultures drawn- she's worried her mother has sepsis and hence that is what is causing her mentation to be worse- i felt this was unnecessary yesterday but she was persistent and upset why it wasn't done- hence i had ordered it- likelihood is low for it to be positive- BCx is still pending this morning. Hypoglycemia- unclear etiology. ?UTI vs poor oral intake. i have stopped her D5 yesterday. encouraged PO intake. her glucose overnight has been around 80- 120s since yesterday- given that she's not eating well this is somewhat expected. will monitor for now. Diet - in the ED she was thought to be having a stroke and hence placed on a pureed diet- daughter is not happy about this- hence i ordered speech and swallow. daughter requests soft food with chopped meat- i have granted her wishes. daughter tells me that is what she was eating at home. disposition- hopefully d/c back to assisted living in AM if her BCx is negative and her hypoglycemia is resolved off the D5
--- NOTE | 2018-07-20 16:50 | Progress Note ---
Provider Note Provider Note: called back by nursing that daughter is at bedside and wants to speak with me. i couldn't go right away but did go to see her within a short time. daughter visibly upset in the room. there's another female in the room daughter immediately started to accuse me of not taking care of her mother. she first asked me why her mother has D5 bag hanging on the IV pole if i have stopped her D5 fluids. i told her that it must be being used for piggyback of her rocephin. she became upset and raised her voice and said "the bag was not there yesterday then why is it here today." i said "i do not know if it was there yesterday but i can check with nursing". she became even more upset- she laughed at me and said -"didn't you order the medication- why dont you know?" i said- "ma'am i do not know why the bag is hanging but her D5 was stopped and this must be for the rocephin". she became upset at me again- started to laugh at me sarcastically- "you are the doctor and you dont know". i told her "ma'am , if there's something i do not know answer for, i will find out for you". she kept saying but the D5 was not there yesterday. i told her that "the D5 was probably used during antibiotic infusion and then taken down when not being used ". her friend interjected daughter- "pedro doctor is saying that you need to run D5 with antibiotics and that is why is it there". then daughter said, "oh ok, well i did not know that" she then goes on to ask- "why did you order physical therapy on my mother, dont you know she's bed bound and she cannot walk". " how dare you order physical therapy on her". i told her "ma'am your mother looked more lethargic and tired today so i wanted to get a PT evaluation and some labs this morning- physical therapy does not always mean they will walk her. pt means they will come evaluate her and see what they can offer to strength her". at this point she tells me- "my mother had a broken arm 2 years ago, she's in pain all the time, if you move her you will cause her a lot of pain- how can you do that ?" i told her "ma'am this is for her benefit - if she's in pain they will not more her arm - and that is all- it is not my intention to harm her- i am doing what i think is best for her". then see asks me- "what labs did you order" i told her what labs i ordered. then she tells me "if you ever want to order (she made quotation gesture with her fingers) anything on my mother - dont order it without my permission" I said again- "ma'am i am trying to do what is best for her" she becomes very upset at me visibly at this time- she states " there is no communication at this hospital, no one knows what they are doing" i said " ma' am what did i do wrong?". she said "well you told me you would call me after rounds yesterday morning - you did not call me until 1am. i have a lot of medical problems and i waited for your call. but since you did not call me i had to come to the hospital". i said "ma'am i am sorry i didn't call you right away in the morning yesterday as i was busy seeing other patients. since you mother was doing well i called you in the after noon to discuss the plan." i told her " i called you this morning and left VM to discuss your mother" she states "oh did you call me because i cursed at the nursing staff this morning on the phone?". i said " no ma'am, i did not know about this- i called you to discuss about your mothers lethargy and work up i am ordering". at this point she's raising her voice and very upset. so i told her politely- "you do not seem to be happy with my services - i will relieve myself as your mothers physician and i will get you another physician" to this she yelled at me " well you go do that and find a better physician". at this i was asked "is there something wrong with me? do you not like me? is it my ethnicity that bothers you?" she stood up and started yelling me "how dare you say that" "who do you think you are" i said "have a good day ma'am" i walked out of the room and she slammed the door behind me. i told patient advocates about situation. i informed hospitalist lead Dr Han about this. i have also let my hospital coordinator know about this. patient will be transferred to Dr Han's service at this time. off note: yesterday patients daughter was upset at nursing staff. she complained yesterday that nurses and aids are outside talking about their personal life while her mother is sick and cannot eat. i told i am sorry and i will speak with nursing staff. I did speak with nursing staff and aids yesterday about patients and being more sensitive to their care and not to talk abut personal life while at work. nursing and aids were very appreciative of feedback and immediately made changes. daughter kept complaining to me that staff is not doing their job while her mother is unable to eat and no one is feeding her. i listened to all her complaints and i assured her that we would try our best to do what is right for her mother.
--- NOTE | 2018-07-20 17:46 | Progress Note ---
Provider Note Provider Note: Assumed care of Ms. Steiner after discussing with Dr. Acosta. Reviewed patient's hospital course, notes, vital signs and lab results. In summary this is an 83 yr old female with dementia who was admitted with acute encephalopathy. Patient had recurrent hypoglycemia in the ER and was also found to have a UTI and was started on Rocephin. Patient was also examined on bedside. She is awake and alert and appears not to be in distress. Cardiac and lung exam are unremarkable. She has chronic leg ulcers. The first wound on the proximal area does not appear erythematous or infected. One of the wound on the left leg on the distal part has some black tissues with no drainage or erythema. Will have surgery evaluate for further recommendation. Also updated that the pathogen from the urine culture is sensitive to Rocephin which the patient has been on since admission. Blood cultures after 24 hrs have been negative. Her sugars improved and was taken of D5 0.45 NS eventually. However, she continued to have spotty appetite. Today, sugar is running in the 80s. Will place her back on D5 0.45 NS. Patient was also evaluated by psych today and has medication recommendations. Discussed this in length with Estella and she did express she wants the regimen recommended by psych started as she also has called her friend who happens to be a behavioral health nurse. Patient's alternating states of confusion with episodes of being more awake in between is consistent with acute delirium in a patient with dementia exacerbated by an infection, in this case, a UTI and the unfamiliarity of the hospital setting. This was discussed with Estella again and she was receptive to this rationale. Discussed assessment and plan and goals of care with patient's daughter, Estella Steiner with Ms. Aguilar in the room. Ms. Soria is amenable to plan. Also explained that physician team will be switching on Friday, Dr. Batres will take over patient's care tomorrow morning.
[2018-07-20] MEDS ORDERED: DIVALPROEX SODIUM 500 MG TAB.SR.24H PO SCH (18:00)
--- NOTE | 2018-07-20 21:12 | PDOC CONSULTATION ---
Consultation Consult Date: 07/20/18 Consult reason:: wound left lower leg lateral aspect History of Present Illness Admission Date/PCP: 07/18/18 09:46 SANIA STEVENS MD Patient complains of: has dementia, asked to evaluate left lower leg History of Present Illness: ALIYAH DENISE is a 83 year old female with history of dementia. Has wounds in the left leg. The most distal apparently has dark discoloration. Past Medical History Cardiac Medical History: Reports: Hyperlipidema Denies: Congestive Heart Failure, Myocardial Infarction, Hypertension Pulmonary Medical History: Denies: Asthma, Bronchitis, Chronic Obstructive Pulmonary Disease (COPD), Pneumonia, Tuberculosis Neurological Medical History: Denies: Seizures Renal/ Medical History: Denies: End Stage Renal Disease GI Medical History: Reports: Hiatal Hernia Denies: Cirrhosis, Gastroesophageal Reflux Disease Musculoskeltal Medical History: Reports: Arthritis - generalized Psychiatric Medical History: Reports: Depression Denies: Bipolar Disorder Hematology: Reports: Anemia, Bleeding Tendencies Past Surgical History Past Surgical History: Reports: Hysterectomy Social History Lives with: Snf Smoking Status: Former Smoker Frequency of Alcohol Use: None Drugs: None - Advance Directive Resuscitation Status: Do Not Intubate Family History Family History: Other - Unobtainable Parental Family History Reviewed: Yes Children Family History Reviewed: No Sibling(s) Family History Reviewed.: No Medication/Allergy Home Medications: Acetaminophen [Tylenol Extra Strength 500 mg Tablet] 500 mg PO Q4HP PRN Alendronate Sodium [Fosamax 70 mg Tablet] 70 mg PO Q7D 07/16/18 Ascorbic Acid [Vitamin C 500 mg Tablet] 500 mg PO QAM 07/16/18 Aspirin [Aspirin 81 mg Chewable Tablet] 81 mg PO QAM 07/16/18 Bupropion HCl [Wellbutrin Xl 150 mg 24hr Tablet] 150 mg PO QAM 07/16/18 Cholecalciferol (Vitamin D3) [Vitamin D3 400 Unit Tablet] 400 unit PO QAM Citalopram Hydrobromide [Celexa 40 mg Tablet] 40 mg PO DAILY@199907/16/18 Cyanocobalamin (Vitamin B-12) [Vitamin B-12 1000 mcg Tablet] 1,000 mcg PO QAM Diclofenac Sodium [Voltaren] 4 gm TOP QID 07/16/18 Docusate Sodium [Colace 100 mg Capsule] 100 mg PO DAILY@199907/16/18 Guaifenesin [Robafen] 10 ml PO Q4HP PRN 07/16/18 Guaifenesin/D-Methorphan Hb [Robafen-Dm Syrup] 10 ml PO Q4HP PRN 07/16/18 Ketoprofen 1 applic TOP QID 07/16/18 Levothyroxine Sodium [Synthroid 0.05 mg Tablet] 0.05 mg PO Q6AM 07/16/18 Loperamide HCl [Anti-Diarrhea] 4 mg PO ASDIR PRN 07/16/18 Mag Hydrox/Al Hydrox/Simeth [Maalox Plus Susp 30 Udcup] 30 ml PO Q4HP PRN Magnesium Hydroxide [Milk of Magnesia 30 ml Udcup] 30 ml PO ASDIR PRN 07/16/18 Melatonin/Pyridoxine [Melatonin 5 mg Tablet] 5 mg PO HSP PRN 07/16/18 Allergies/Adverse Reactions: No Known Allergies Allergy (Unverified 07/16/18 12:21) Review of Systems ROS unobtainable: Due to mental status Physical Exam Vital Signs: Temp Pulse Resp BP Pulse Ox 98.3 F 74 17 162/72 H 92 07/20/18 19:58 07/20/18 19:58 07/20/18 19:58 07/20/18 19:58 07/20/18 19:58 Intake & Output 07/19/18 07/20/18 07/21/18 06:59 06:59 06:59 Intake Total 1186 1551 100 Output Total 700 Balance 486 1551 100 Weight 59.4 kg 57.4 kg General appearance: PRESENT: no acute distress Head exam: PRESENT: atraumatic Eye exam: PRESENT: conjunctiva pink Mouth exam: PRESENT: moist Neck exam: PRESENT: full ROM Cardiovascular exam: PRESENT: RRR Pulses: PRESENT: normal radial pulses Vascular exam: PRESENT: normal capillary refill GI/Abdominal exam: PRESENT: soft Rectal exam: PRESENT: deferred Extremities exam: PRESENT: other - left knee with a superficial ulceration about 2 cm in diameter Left mid lateral knee with a 1.5 cm superficial ulcer with dark discoloration. No abscess noted. The skin of the left lower leg appears to be very thin Musculoskeletal exam: PRESENT: other - appears non ambulatory with partial flexion contracture of both knees Neurological exam: PRESENT: awake Psychiatric exam: PRESENT: flat affect Skin exam: PRESENT: normal color, warm Results Laboratory Results: 07/20/18 09:50 07/20/18 09:50 07/20/18 07/20/18 07/20/18 09:50 09:50 09:50 WBC 7.1 RBC 3.58 L Hgb 10.6 L Hct 31.8 L MCV 89 MCH 29.7 MCHC 33.5 RDW 14.7 H Plt Count 384 Seg Neutrophils % 63.8 Lymphocytes % 26.3 Monocytes % 6.8 Eosinophils % 2.5 Basophils % 0.6 Absolute Neutrophils 4.5 Absolute Lymphocytes 1.9 Absolute Monocytes 0.5 Absolute Eosinophils 0.2 Absolute Basophils 0.0 Sodium 139.3 Potassium 4.6 Chloride 102 Carbon Dioxide 31 H Anion Gap 6 BUN 7 Creatinine 0.70 Est GFR ( Amer) > 60 Est GFR (Non-Af Amer) > 60 Glucose 80 Lactic Acid Calcium 9.1 Magnesium 1.7 Total Bilirubin 0.3 AST 26 ALT 7 L Alkaline Phosphatase 116 Ammonia < 8.7 L Total Protein 5.9 L Albumin 2.7 L Vitamin B12 > 1000.0 H 07/20/18 17:11 WBC RBC Hgb Hct MCV MCH MCHC RDW Plt Count Seg Neutrophils % Lymphocytes % Monocytes % Eosinophils % Basophils % Absolute Neutrophils Absolute Lymphocytes Absolute Monocytes Absolute Eosinophils Absolute Basophils Sodium Potassium Chloride Carbon Dioxide Anion Gap BUN Creatinine Est GFR ( Amer) Est GFR (Non-Af Amer) Glucose Lactic Acid 0.6 L Calcium Magnesium Total Bilirubin AST ALT Alkaline Phosphatase Ammonia Total Protein Albumin Vitamin B12 07/20/18 09:50 Troponin I < 0.012 Impressions: Head CT 07/16/18 00:00 IMPRESSION: MICROVASCULAR ISCHEMIA AND GENERALIZED ATROPHY. NO ACUTE IMAGING FINDINGS IN THE BRAIN EVIDENCE OF ACUTE STROKE: NO. Chest X-Ray 07/16/18 12:39 IMPRESSION: Cardiomegaly. Large retrocardiac hiatal hernia. Left basilar airspace disease could not entirely be excluded Assessment & Plan - Diagnosis (1) superficial ulcers left lower leg Is this a current diagnosis for this admission?: Yes - Time Time Spent: 30 to 50 Minutes - Plan Summary Plan Summary: These ulcers to left lower leg are superficial and not infected. OK to just keep them dry. I have reassured the daughter that these wounds are superficial without abscess.
[2018-07-20] MEDS ORDERED: BUSPIRONE HCL 10 MG TABLET PO SCH (22:00)
[2018-07-20] MEDS: VALPROATE SODIUM SYRUP 250 MG/5 ML UDCUP PO SCH (23:54)
[2018-07-20] MEDS: CITALOPRAM HYDROBROMIDE 20 MG TABLET PO SCH (23:55)
[2018-07-20] MEDS: DOCUSATE SODIUM 100 MG CAPSULE PO SCH (23:56)
[2018-07-21 00:50] VITALS: BP 106/57
[2018-07-21] MEDS: VALPROATE SODIUM SYRUP 250 MG/5 ML UDCUP PO SCH ×2 (03:31→06:11)
[2018-07-21] MEDS: DEXTROSE 5%-1/2 NORMAL SALINE 1,000 ML IV PRN ×2 (03:33→11:07)
[2018-07-21] MEDS: LEVOTHYROXINE SODIUM 0.05 MG TABLET PO SCH (06:11)
[2018-07-21] MEDS: HEPARIN SOD (PORCINE) 5,000 UNIT/ML 1 ML SYRINGE SUBCUT SCH ×2 (06:14→13:15)
[2018-07-21] MEDS ORDERED: BUSPIRONE HCL 10 MG TABLET PO SCH (08:00)
[2018-07-21] MEDS: ASCORBIC ACID 500 MG TABLET PO SCH (09:41)
[2018-07-21] MEDS: CHOLECALCIFEROL (D3) 400 UNIT TABLET PO SCH (09:41)
[2018-07-21] MEDS: ASPIRIN 81 MG TABLET, CHEWABLE PO SCH (09:41)
[2018-07-21] MEDS: CYANOCOBALAMIN (VITAMIN B-12) 1,000 MCG TABLET PO SCH (09:41)
[2018-07-21] MEDS ORDERED: BUPROPION HCL 75 MG TABLET PO SCH (10:00)
[2018-07-21] MEDS ORDERED: CITALOPRAM HYDROBROMIDE 20 MG TABLET PO SCH (10:00)
[2018-07-21] MEDS ORDERED: LEVOFLOXACIN 250 MG TABLET PO SCH (10:00)
--- NOTE | 2018-07-21 17:10 | PDOC TRANSFER SUMMARY ---
General - Admit/Disc Date/PCP Admission Date/Primary Care Provider: 07/18/18 09:46 SANIA STEVENS MD Discharge Date: 07/21/18 - Discharge Diagnosis (1) Encephalopathy acute Is this a current diagnosis for this admission?: Yes Summary: Patient presented with and decreased mental status/alertness. Her status was felt to be due to a combination of hypoglycemia and acute urinary tract infection. Both of which were addressed with IV fluids containing 5% dextrose and intravenous antibiotics utilizing Rocephin. She had an excellent clinical response to initiation of therapy and showed significant improvement within the first 24-48 hours of her hospital course. Her daughter feels that she is back to her baseline status at the time of discharge. (2) Delirium due to another medical condition Is this a current diagnosis for this admission?: Yes Summary: Patient's delirium was felt to be due to her hypoglycemia and acute urinary tract infection. She showed an excellent response to therapy and thereby help to confirm the suspicion as to the etiology of her delirium. 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 This is her underlying baseline status and she has returned to her "normal" baseline status at the time of discharge according to her daughter who sees her frequently and knows her status well. (4) Hypoglycemia Is this a current diagnosis for this admission?: Yes Summary: Patient was noted to have recurrent hypoglycemia during her initial hospital course in the emergency room. Patient was treated with intravenous fluids with dextrose and her hypoglycemia resolved. Subsequently her IV fluids were discontinued without recurrence of her hypoglycemic state. (5) Urinary tract infection Is this a current diagnosis for this admission?: Yes Summary: Patient was noted to have evidence of a urinary tract infection on admission in the emergency room. She was empirically treated with Rocephin and subsequently was found to have a urinary tract infection with Enterobacter aerogenes and antibiotic therapy was changed to Levaquin given orally. This will be continued after discharge to complete a 7-day course. - Additional Information Resuscitation Status: Do Not Intubate Home Medications: Acetaminophen [Tylenol Extra Strength 500 mg Tablet] 500 mg PO Q4HP PRN Alendronate Sodium [Fosamax 70 mg Tablet] 70 mg PO Q7D 07/16/18 Ascorbic Acid [Vitamin C 500 mg Tablet] 500 mg PO QAM 07/16/18 Aspirin [Aspirin 81 mg Chewable Tablet] 81 mg PO QAM 07/16/18 Bupropion HCl [Wellbutrin Xl 150 mg 24hr Tablet] 150 mg PO QAM 07/16/18 Cholecalciferol (Vitamin D3) [Vitamin D3 400 Unit Tablet] 400 unit PO QAM Citalopram Hydrobromide [Celexa 40 mg Tablet] 40 mg PO DAILY@199907/16/18 Cyanocobalamin (Vitamin B-12) [Vitamin B-12 1000 mcg Tablet] 1,000 mcg PO QAM Diclofenac Sodium [Voltaren] 4 gm TOP QID 07/16/18 Docusate Sodium [Colace 100 mg Capsule] 100 mg PO DAILY@199907/16/18 Guaifenesin [Robafen] 10 ml PO Q4HP PRN 07/16/18 Guaifenesin/D-Methorphan Hb [Robafen-Dm Syrup] 10 ml PO Q4HP PRN 07/16/18 Ketoprofen 1 applic TOP QID 07/16/18 Levothyroxine Sodium [Synthroid 0.05 mg Tablet] 0.05 mg PO Q6AM 07/16/18 Loperamide HCl [Anti-Diarrhea] 4 mg PO ASDIR PRN 07/16/18 Mag Hydrox/Al Hydrox/Simeth [Maalox Plus Susp 30 Udcup] 30 ml PO Q4HP PRN Magnesium Hydroxide [Milk of Magnesia 30 ml Udcup] 30 ml PO ASDIR PRN 07/16/18 Melatonin/Pyridoxine [Melatonin 5 mg Tablet] 5 mg PO HSP PRN 07/16/18 History of Present Illness Admission Date/PCP: 07/18/18 09:46 SANIA STEVENS MD Patient complains of: Worsening confusion and decreased mental status History of Present Illness: ALIYAH DENISE is a 83 year old female with dementia who was admitted with acute encephalopathy of uncertain etiology. She had recurrent hypoglycemia in the ER and was also found to have a UTI and was started on Rocephin prior to admission. Hospital Course Hospital Course: Mrs. Denise was initially treated with IV fluids utilizing D5 half-normal saline to help stabilize her blood sugar. Additionally she was treated with IV antibiotics utilizing Rocephin empirically. Her urine culture grew Enterobacter and eventually patient was converted to oral Levaquin prior to discharge. Her blood sugar stabilized and remained in a normal range without supplemental dextrose for the last 24-48 hours of her hospitalization. Her initial delirium/encephalopathy resolved quickly after initiation of treatment of her underlying problems. She was noted to become somewhat more somnolent during her hospital course and several medication she had been taking were discontinued. Initially a plan was made to substitute Depakote 500 mg twice daily and BuSpar 5 mg twice daily into her regimen, however after further discussion with her daughter is been decided to let her mother finish her antibiotics and observe her behavior for a period of a week or so. If at that time the family feels that it is advisable to start her on Depakote and BuSpar it will be done by her primary care provider. Due to her excellent progress in recovery it was felt that Mrs. Denise was ready to be returned to her previous assisted living environment at [facility]. Physical Exam Vital Signs: Temp Pulse Resp BP Pulse Ox 97.8 F 75 14 106/57 L 95 07/21/18 03:44 07/21/18 14:00 07/21/18 03:44 07/21/18 03:44 07/21/18 03:44 Intake & Output 07/19/18 07/20/18 07/21/18 23:59 23:59 23:59 Intake Total 1612 175 857 Output Total 300 Balance 1312 175 857 Weight 57.4 kg 60.2 kg General appearance: PRESENT: no acute distress, cooperative Head exam: PRESENT: atraumatic, normocephalic Eye exam: PRESENT: conjunctiva pink. ABSENT: nystagmus, scleral icterus Ear exam: PRESENT: normal external ear exam Mouth exam: PRESENT: neck supple Respiratory exam: PRESENT: clear to auscultation janeen, symmetrical, unlabored Cardiovascular exam: PRESENT: RRR. ABSENT: clicks, gallop, rubs Vascular exam: PRESENT: normal capillary refill. ABSENT: pallor GI/Abdominal exam: PRESENT: normal bowel sounds, soft Rectal exam: PRESENT: deferred Neurological exam: PRESENT: alert, awake Psychiatric exam: PRESENT: appropriate affect, normal mood Skin exam: ABSENT: jaundice, rash, urticaria Results Laboratory Results: 07/20/18 09:50 07/20/18 09:50 07/20/18 17:11 Lactic Acid 0.6 L 07/20/18 09:50 Troponin I < 0.012 Impressions: Head CT 07/16/18 00:00 IMPRESSION: MICROVASCULAR ISCHEMIA AND GENERALIZED ATROPHY. NO ACUTE IMAGING FINDINGS IN THE BRAIN EVIDENCE OF ACUTE STROKE: NO. Chest X-Ray 07/16/18 12:39 IMPRESSION: Cardiomegaly. Large retrocardiac hiatal hernia. Left basilar airspace disease could not entirely be excluded Transfer Plan - Disposition Transfer Plan: Discharge to the [facility] via [facility] ambulance ground transport as patient is unable to ambulate or sit upright in order to be transported via any other mechanism stretcher in a ambulance or similar conveyance. - Time Spent with Patient Time spent with patient: Greater than 30 Minutes Qualifiers - * PATIENT BEING DISCHARGED WITH ANY OF THE FOLLOWING DIAGNOSIS: No Plan Discharge Plan: Discharge to assisted living in improved and stable condition. Time Spent: Greater than 30 Minutes
== END 2018-07-21 18:57 | DRG 690 ==
LOC: ER 12:03 → EH 19:18 → 4S 20:54 → OBSVTOIN 07-18 09:46
PROVIDERS: ADMIT Internal Medicine; ATTEND Internal Medicine
PROC: 3E0F73Z Introduction of Anti-inflammatory into Respiratory Tract, Via Natural or Artificial Opening (ICD-10-PCS; principal; 2018-07-17)
DX: N39.0 Urinary tract infection, site not specified (principal); G93.40 Encephalopathy, unspecified; L97.829 Non-pressure chronic ulcer of other part of left lower leg with unspecified severity; R41.0 Disorientation, unspecified; G30.1 Alzheimer's disease with late onset; Z66 Do not resuscitate; F02.80 Dementia in other diseases classified elsewhere, unspecified severity, without behavioral disturbance, psychotic disturbance, mood disturbance, and anxiety; E16.2 Hypoglycemia, unspecified; E78.00 Pure hypercholesterolemia, unspecified; D64.9 Anemia, unspecified; F32.9 Major depressive disorder, single episode, unspecified; M15.9 Polyosteoarthritis, unspecified; K44.9 Diaphragmatic hernia without obstruction or gangrene; Z79.899 Other long term (current) drug therapy; Z90.710 Acquired absence of both cervix and uterus; Z87.891 Personal history of nicotine dependence; Z79.82 Long term (current) use of aspirin
CPT/HCPCS: 36415; 51701; 70450; 71045; 80048; 80053; 81001; 82140; 82306; 82533; 82607; 82962; 83605; 83735; 84100; 84425; 84443; 84484; 85025; 85652; 86592; 87040; 87086; 87088; 87186; 93005; 93010; 96361; 96365; 96375; 99285; G0378; G8996-GN; G8997-GN; G8998-GN; J0696; J1644; J3480; J3490

== ENCOUNTER 2019-04-26 13:40 | Observation (INO) | payer MEDICARE ==
[2019-04-26 14:25] LABS: ABSOLUTE EOSINOPHILS # (AUTO) 0.1 10^3/uL (0.0-0.6); ABSOLUTE LYMPHOCYTES (AUTO) 2.1 10^3/uL (0.5-4.7); ABSOLUTE MONOCYTES (AUTO) 0.7 10^3/uL (0.1-1.4); ABSOLUTE NEUT (AUTO) 7.1 10^3/uL (1.7-8.2); BASOPHILS % (AUTO) 0.4 % (0-2); EOSINOPHILS % (AUTO) 1.3 % (0-6); HEMATOCRIT 35.1 % (36.0-47.0); HEMOGLOBIN 11.8 g/dL (12.0-15.5); LYMPHOCYTES % (AUTO) 20.5 % (13-45); MEAN CORPUSCULAR HEMOGLOBIN 28.4 pg (27.0-33.4); MEAN CORPUSCULAR HGB CONC 33.6 g/dL (32.0-36.0); MEAN CORPUSCULAR VOLUME 84 fl (80-97); MONOCYTES % (AUTO) 6.9 % (3-13); PLATELET COUNT 342 10^3/uL (150-450); RED BLOOD COUNT 4.16 10^6/uL (3.72-5.28); RED CELL DISTRIBUTION WIDTH 17.1 % (11.5-14.0); SEGMENTED NEUTROPHILS % (AUTO) 70.9 % (42-78); TOTAL CELLS COUNTED % (AUTO) 100 %
[2019-04-26] MEDS ORDERED: NORMAL SALINE 1000 ML 1,000 ML IV ONE (14:25)
[2019-04-26 14:44] LABS: ALBUMIN 3.7 g/dL (3.5-5.0); ALKALINE PHOSPHATASE 88 U/L (38-126); ANION GAP 11 (5-19); ASPARTATE AMINO TRANSFERASE 30 U/L (14-36); BILIRUBIN,DIRECT 0.2 mg/dL (0.0-0.4); BILIRUBIN,TOTAL 0.6 mg/dL (0.2-1.3); BLOOD UREA NITROGEN 21 mg/dL (7-20); CALCIUM 9.6 mg/dL (8.4-10.2); CARBON DIOXIDE 27 mmol/L (22-30); CHLORIDE 99 mmol/L (98-107); GLUCOSE 91 mg/dL (75-110); POTASSIUM 4.7 mmol/L (3.6-5.0); TOTAL PROTEIN 7.3 g/dL (6.3-8.2)
[2019-04-26 14:59] LABS: APPEARANCE,URINE CLOUDY; BILIRUBIN,URINE NEGATIVE (NEGATIVE); COLOR,URINE YELLOW; GLUCOSE, URINE NEGATIVE (NEGATIVE); KETONES,URINE NEGATIVE (NEGATIVE); LEUKOCYTE ESTERASE,URINE LARGE (NEGATIVE); NITRITE,URINE NEGATIVE (NEGATIVE); PROTEIN,URINE 30 mg/dL (NEGATIVE); URINE SPECIFIC GRAVITY 1.016; UROBILINOGEN,URINE NEGATIVE mg/dL (<2.0)
--- NOTE | 2019-04-26 15:12 | ER Document Report ---
ED General - General Chief Complaint: Fatigue Stated Complaint: LETHARGIC Time Seen by Provider: 04/26/19 14:07 Information source: Patient, Relative TRAVEL OUTSIDE OF THE [place] IN LAST 30 DAYS: No - HPI Notes: Patient has a history of dementia. It is difficult to get an adequate history from the patient most of the history was obtained from her daughter. Her daughter is at bedside. Patient has had decreased mental status this morning. She has been less interactive and less jovial. She also has had less of an appetite and did not eat her normal breakfast. No known recent trauma or falls. Patient has not complained of any pain. Patient has not had a cough or any res piratory symptoms. There is been no labored breathing. Patient has had no new weakness of any arm or leg. No change of speech. Symptoms have been constant. Nothing is made it better or worse. There is no known radiation symptoms. They are mild to moderate. Patient has had no recent falls or trauma. No known vomiting or diarrhea. - Related Data Allergies/Adverse Reactions: No Known Allergies Allergy (Unverified 07/16/18 12:21) Past Medical History - General Information source: Patient, Relative - Social History Smoking Status: Never Smoker Frequency of alcohol use: None Drug Abuse: None Family History: Reviewed & Not Pertinent, Other - Unobtainable - Past Medical History Cardiac Medical History: Reports: Hx Hypercholesterolemia Denies: Hx Congestive Heart Failure, Hx Heart Attack, Hx Hypertension Pulmonary Medical History: Denies: Hx Asthma, Hx Bronchitis, Hx COPD, Hx Pneumonia, Hx Tuberculosis Neurological Medical History: Denies: Hx Seizures Renal/ Medical History: Denies: Hx End Stage Renal Disease, Hx Kidney Stones, Hx Peritoneal Dialysis GI Medical History: Reports: Hx Hiatal Hernia. Denies: Hx Cirrhosis, Hx Gastroesophageal Reflux Disease, Hx Ulcer Musculoskeletal Medical History: Reports Hx Arthritis - generalized, Denies Hx Multiple Sclerosis Psychiatric Medical History: Reports: Hx Depression Denies: Hx Bipolar Disorder, Hx Schizophrenia Past Surgical History: Reports: Hx Abdominal Surgery - hernia surgery, Hx C ardiac Surgery - pacemaker, carotid artery,, Hx Hysterectomy - Immunizations Hx Diphtheria, Pertussis, Tetanus Vaccination: No Review of Systems - Review of Systems -: Yes ROS unobtainable due to patient's medical condition - Patient has dementia and is not able to give an adequate response Physical Exam - Vital signs Vitals: Resp BP Pulse Ox 21 H 146/72 H 94 04/26/19 14:01 04/26/19 14:01 04/26/19 14:01 Interpretation: Normal - General General appearance: Appears well, Alert - HEENT Head: Normocephalic, Atraumatic Eyes: Normal Pupils: PERRL - Respiratory Respiratory status: No respiratory distress Chest status: Nontender Breath sounds: Normal Chest palpation: Normal - Cardiovascular Rhythm: Regular Heart sounds: Normal auscultation Murmur: No - Abdominal Inspection: Normal Distension: No distension Bowel sounds: Normal Tenderness: Nontender Organomegaly: No organomegaly - Back Back: Normal, Nontender - Extremities General upper extremity: Normal inspection, Nontender, Normal color, Normal ROM, Normal temperature General lower extremity: Normal inspection, Nontender, Normal color, Normal ROM, Normal temperature, Normal weight bearing. No: Conner's sign - Neurological Neuro grossly intact: Yes Cognition: Confused Orientation: Disoriented to place, Disoriented to time Cope Coma Scale Eye Opening: Spontaneous Tank Coma Scale Verbal: Inappropriate Tank Coma Scale Motor: Obeys Commands Tank Coma Scale Total: 13 Speech: Normal Cranial nerves: No: Facial palsy, Gaze palsy Motor strength normal: LUE, RUE, LLE, RLE Sensory: Normal - Psychological Associated symptoms: Normal affect, Normal mood - Skin Skin Temperature: Warm Skin Moisture: Dry Skin Color: Normal Course - Re-evaluation Re-evalutation: 04/26/19 16:39 Patient reevaluated just now. Patient is resting comfortably in the bed. She has a urinary tract infection. She is not hypotensive or tachycardic. She does have some altered mental status. I have discussed the case with the hospitalist who will admit the patient for IV antibiotics and IV fluids. - Vital Signs Vital signs: Temp Pulse Resp BP Pulse Ox 14 140/67 H 94 04/26/19 15:01 04/26/19 15:01 04/26/19 14:01 - Laboratory Result Diagrams: 04/26/19 14:14 04/26/19 14:14 Laboratory results interpreted by me: 04/26/19 04/26/19 04/26/19 14:14 14:14 14:36 Hgb 11.8 L Hct 35.1 L RDW 17.1 H Sodium 136.5 L BUN 21 H Urine Protein 30 H Urine Blood MODERATE H Ur Leukocyte Esterase LARGE H Urine Ascorbic Acid 40 H 04/26/19 16:40 Laboratory 04/26/19 04/26/19 04/26/19 14:14 14:14 14:14 WBC 10.0 RBC 4.16 Hgb 11.8 L Hct 35.1 L MCV 84 MCH 28.4 MCHC 33.6 RDW 17.1 H Plt Count 342 Seg Neutrophils % 70.9 Lymphocytes % 20.5 Monocytes % 6.9 Eosinophils % 1.3 Basophils % 0.4 Absolute Neutrophils 7.1 Absolute Lymphocytes 2.1 Absolute Monocytes 0.7 Absolute Eosinophils 0.1 Absolute Basophils 0.0 Sodium 136.5 L Potassium 4.7 Chloride 99 Carbon Dioxide 27 Anion Gap 11 BUN 21 H Creatinine 0.82 Est GFR ( Amer) > 60 Est GFR (Non-Af Amer) > 60 Glucose 91 Calcium 9.6 Total Bilirubin 0.6 Direct Bilirubin 0.2 Neonat Total Bilirubin Not Reportable Neonat Direct Bilirubin Not Reportable Neonat Indirect Bili Not Reportable AST 30 ALT 9 Alkaline Phosphatase 88 CK-MB (CK-2) 1.41 Total Protein 7.3 Albumin 3.7 Urine Color Urine Appearance Urine pH Ur Specific [place] Urine Protein Urine Glucose (UA) Urine Ketones Urine Blood Urine Nitrite Urine Bilirubin Urine Urobilinogen Ur Leukocyte Esterase Urine WBC (Auto) Urine RBC (Auto) Urine Bacteria (Auto) Urine WBC Clumps Squamous Epi Cells Auto Urine Mucus (Auto) Urine Ascorbic Acid 04/26/19 14:36 WBC RBC Hgb Hct MCV MCH MCHC RDW Plt Count Seg Neutrophils % Lymphocytes % Monocytes % Eosinophils % Basophils % Absolute Neutrophils Absolute Lymphocytes Absolute Monocytes Absolute Eosinophils Absolute Basophils Sodium Potassium Chloride Carbon Dioxide Anion Gap BUN Creatinine Est GFR ( Amer) Est GFR (Non-Af Amer) Glucose Calcium Total Bilirubin Direct Bilirubin Neonat Total Bilirubin Neonat Direct Bilirubin Neonat Indirect Bili AST ALT Alkaline Phosphatase CK-MB (CK-2) Total Protein Albumin Urine Color YELLOW Urine Appearance CLOUDY Urine pH 6.0 Ur Specific [place] 1.016 Urine Protein 30 H Urine Glucose (UA) NEGATIVE Urine Ketones NEGATIVE Urine Blood MODERATE H Urine Nitrite NEGATIVE Urine Bilirubin NEGATIVE Urine Urobilinogen NEGATIVE Ur Leukocyte Esterase LARGE H Urine WBC (Auto) >182 Urine RBC (Auto) 17 Urine Bacteria (Auto) TRACE Urine WBC Clumps MANY Squamous Epi Cells Auto 1 Urine Mucus (Auto) MANY Urine Ascorbic Acid 40 H - Diagnostic Test Radiology reviewed: Image reviewed, Reports reviewed - Head CT shows no acute pathology Radiology results interpreted by me: 04/26/19 16:[address] 04/26/19 14:25 IMPRESSION: MICROVASCULAR ISCHEMIA AND GENERALIZED ATROPHY. NO ACUTE IMAGING FINDINGS IN THE BRAIN EVIDENCE OF ACUTE STROKE: NO. Discharge - Discharge Clinical Impression: Urinary tract infection Qualifiers: Urinary tract infection type: acute cystitis Hematuria presence: without hematuria Qualified Code(s): N30.00 - Acute cystitis without hematuria Altered mental status Qualifiers: Altered mental status type: disorientation Qualified Code(s): R41.0 - D isorientation, unspecified Condition: Serious Disposition: ADMITTED INPATIENT Admitting Provider: Dut (Hospitalist) Unit Admitted: Medical Floor
[2019-04-26] MEDS ORDERED: CEFTRIAXONE 1 GM/D5W RTU 1 GM/50 ML RTUPB IV ONE (15:13)
--- NOTE | 2019-04-26 15:27 | RADIOLOGY REPORT (SQ) ---
EXAM DESCRIPTION: CT HEAD WITHOUT COMPLETED DATE/TIME: 04/26/2019 3:15 pm REASON FOR STUDY: ams COMPARISON: 07/16/2018 TECHNIQUE: Axial images acquired through the brain without intravenous contrast. Images reviewed wi th bone, brain and subdural windows. Additional sagittal and coronal reconstructions were generated. Images stored on PACS. All CT scanners at this facility use dose modulation, iterative reconstruction, and/or weight based d osing when appropriate to reduce radiation dose to as low as reasonably achievable (ALARA). [facility]: Dose Right [facility]: CareDose [facility]: Dose Right [facility]: Teradose 4D [facility]: [employer] RADIATION DOSE: CT Rad equipment meets quality standard of care and radiation dose reduction techniq ues were employed. CTDIvol: 22.3 mGy. DLP: 437 mGy-cm. mGy. LIMITATIONS: None. FINDINGS: VENTRICLES: Prominent ventricles secondary to involutional atrophy. CEREBRUM: Cortical atrophy. No masses. No hemorrhage. No midline shift. No evidence for acute inf arction. Areas of low density in the white matter most likely chronic small vessel ischemic changes. CEREBELLUM: No masses. No hemorrhage. No alteration of density. No evidence for acute infarction. EXTRAAXIAL SPACES: No fluid collections. No masses. ORBITS AND GLOBE: No intra- or extraconal masses. Normal contour of globe without masses. CALVARIUM: No fracture. PARANASAL SINUSES: No fluid or mucosal thickening. SOFT TISSUES: No mass or hematoma. OTHER: No other significant finding. IMPRESSION: MICROVASCULAR ISCHEMIA AND GENERALIZED ATROPHY. NO ACUTE IMAGING FINDINGS IN THE BRAIN EVIDENCE OF ACUTE STROKE: NO. COMMENT: Quality ID # [id number]: Final reports with documentation of one or more dose reduction techniques (e.g., Automated exposure control, adjustment of the mA and/or kV according to patient size, use of iterative reconstruction technique) TECHNICAL DOCUMENTATION: JOB ID: [id number] [employer]- All Rights Reserved Reading location - IP/workstation name: [email or web address]
[2019-04-26] MEDS ORDERED: ACETAMINOPHEN 325 MG TABLET PO PRN (17:49)
[2019-04-26] MEDS ORDERED: ONDANSETRON HCL INJ/PF 4 MG/2 ML SDV IV PRN (17:49)
[2019-04-26] MEDS ORDERED: MAG HYDROX/AL HYDROX/SIMETH SUSP 30 ML UDCUP PO PRN (17:49)
--- NOTE | 2019-04-26 18:05 | PDOC H&P ---
History of Present Illness Admission Date/PCP: 04/26/19 16:45 Patient complains of: lethargy, UTI History of Present Illness: AILYAH DENISE is a 84 year old female with a past medical history significant for osteopenia, chronic constipation, hypothyroidism, advanced dementia, who is bedbound at baseline (2 person assist to wheelchair, oriented to self only) who presents to the emergency department today for increased lethargy. Per family members she has not had any specific symptoms and was at her baseline health yesterday but today was noted to be fatigued and difficult to wake. Evaluation in the emergency department is essentially unremarkable other than UTI by urinalysis. Vital signs are stable, WBC is normal, and head CT is benign, chemistry is acceptable. Patient has been provided IV fluids and Rocephin; she is referred to the hospitalist service for admission and management. Past Medical History Cardiac Medical History: Reports: Hyperlipidema Denies: Congestive Heart Failure, Myocardial Infarction, Hypertension Pulmonary Medical History: Reports: None EENT Medical History: Reports: Cataracts Neurological Medical History: Denies: Ischemic CVA, Seizures Endocrine Medical History: Reports: Hypothyroidism Renal/ Medical History: Reports: None GI Medical History: Reports: Hiatal Hernia Denies: Cirrhosis, Gastroesophageal Reflux Disease Musculoskeltal Medical History: Reports: Arthritis - generalized Psychiatric Medical History: Reports: Depression Denies: Bipolar Disorder Hematology: Reports: Anemia, Bleeding Tendencies Past Surgical History Past Surgical History: Reports: Hysterectomy, Pacemaker Social History Information Source: Relative Lives with: Skilled Nursing Smoking Status: Never Smoker Frequency of Alcohol Use: None Hx Recreational Drug Use: No Drugs: None Hx Prescription Drug Abuse: No - Advance Directive Resuscitation Status: Do Not Resuscitate Surrogate healthcare decision maker:: The patient's daughter, Estella Denise, Family History Family History: Reviewed & Not Pertinent Parental Family History Reviewed: Yes Children Family History Reviewed: Yes Sibling(s) Family History Reviewed.: Yes Medication/Allergy Allergies/Adverse Reactions: No Known Allergies Allergy (Unverified 07/16/18 12:21) Review of Systems Constitutional: PRESENT: anorexia, fatigue. ABSENT: chills, fever(s), headache(s), weight gain, weight loss Eyes: ABSENT: visual disturbances Ears: ABSENT: hearing changes Cardiovascular: ABSENT: chest pain, dyspnea on exertion, edema, orthropnea, palpitations Respiratory: ABSENT: cough, hemoptysis Gastrointestinal: ABSENT: abdominal pain, constipation, diarrhea, hematemesis, hematochezia, nausea, vomiting Genitourinary: ABSENT: dysuria, hematuria Musculoskeletal: ABSENT: joint swelling Integumentary: ABSENT: rash, wounds Neurological: PRESENT: other - Lethargy. ABSENT: abnormal gait, abnormal speech, confusion, dizziness, focal weakness, syncope Psychiatric: ABSENT: anxiety, depression, homidical ideation, suicidal ideation Endocrine: ABSENT: cold intolerance, heat intolerance, polydipsia, polyuria Hematologic/Lymphatic: ABSENT: easy bleeding, easy bruising Physical Exam Vital Signs: Temp Pulse Resp BP Pulse Ox 24 H 149/62 H 94 04/26/19 17:01 04/26/19 17:01 04/26/19 14:01 Intake & Output 04/25/19 04/26/19 04/27/19 06:59 06:59 06:59 Intake Total 1050 Balance 1050 General appearance: PRESENT: no acute distress, thin, well-developed, well- nourished Head exam: PRESENT: atraumatic, normocephalic Eye exam: ABSENT: scleral icterus Mouth exam: PRESENT: dry mucosa, tongue midline Neck exam: PRESENT: other - Ecchymosis to left anterior neck; per daughter no injury (patient frequently scratches/pulls at skin). ABSENT: carotid bruit, JVD, lymphadenopathy, thyromegaly Respiratory exam: PRESENT: clear to auscultation janeen, symmetrical, unlabored. ABSENT: rales, rhonchi, wheezes Cardiovascular exam: PRESENT: RRR, +S1, +S2. ABSENT: diastolic murmur, rubs, systolic murmur Pulses: PRESENT: normal dorsalis pedis pul Vascular exam: PRESENT: normal capillary refill GI/Abdominal exam: PRESENT: normal bowel sounds, soft. ABSENT: distended Rectal exam: PRESENT: deferred Extremities exam: PRESENT: full ROM. ABSENT: calf tenderness, clubbing, pedal edema Neurological exam: PRESENT: CN II-XII grossly intact, other - Sleeping soundly; oriented to self at baseline. ABSENT: motor sensory deficit Skin exam: PRESENT: dry, intact, warm. ABSENT: cyanosis, rash Results Laboratory Results: 04/26/19 14:14 04/26/19 14:14 04/26/19 04/26/19 04/26/19 14:14 14:14 14:36 WBC 10.0 RBC 4.16 Hgb 11.8 L Hct 35.1 L MCV 84 MCH 28.4 MCHC 33.6 RDW 17.1 H Plt Count 342 Seg Neutrophils % 70.9 Lymphocytes % 20.5 Monocytes % 6.9 Eosinophils % 1.3 Basophils % 0.4 Absolute Neutrophils 7.1 Absolute Lymphocytes 2.1 Absolute Monocytes 0.7 Absolute Eosinophils 0.1 Absolute Basophils 0.0 Sodium 136.5 L Potassium 4.7 Chloride 99 Carbon Dioxide 27 Anion Gap 11 BUN 21 H Creatinine 0.82 Est GFR ( Amer) > 60 Est GFR (Non-Af Amer) > 60 Glucose 91 Calcium 9.6 Total Bilirubin 0.6 AST 30 Alkaline Phosphatase 88 Total Protein 7.3 Albumin 3.7 Urine Color YELLOW Urine Appearance CLOUDY Urine pH 6.0 Ur Specific [place] 1.016 Urine Protein 30 H Urine Glucose (UA) NEGATIVE Urine Ketones NEGATIVE Urine Blood MODERATE H Urine Nitrite NEGATIVE Ur Leukocyte Esterase LARGE H Urine WBC (Auto) >182 Urine RBC (Auto) 17 04/26/19 04/26/19 14:14 14:14 CK-MB (CK-2) 1.41 Troponin I 0.013 Impressions: Head CT 04/26/19 14:25 IMPRESSION: MICROVASCULAR ISCHEMIA AND GENERALIZED ATROPHY. NO ACUTE IMAGING FINDINGS IN THE BRAIN EVIDENCE OF ACUTE STROKE: NO. Assessment and Plan - Diagnosis (1) Urinary tract infection Qualifiers: Urinary tract infection type: acute cystitis Hematuria presence: without he maturia Qualified Code(s): N30.00 - Acute cystitis without hematuria Is this a current diagnosis for this admission?: Yes Plan: Urinalysis reveals urinary tract infection. Blood and urine cultures pending. Patient is admitted to the medical floor She is provided gentle IV fluids. She is empirically placed on Rocephin; Will adjust as cultures result. (2) Delirium due to another medical condition Is this a current diagnosis for this admission?: Yes Plan: Supportive care; fall precautions. Assist with meals. IV fluids and antibiotics as above. (3) Hypothyroidism Is this a current diagnosis for this admission?: Yes Plan: Continue home dose Synthroid (4) Dementia Is this a current diagnosis for this admission?: Yes Plan: Baseline dementia; patient oriented to self only, she is socially appropriate and conversational (although per daughter patient does not make much sense). She is bedbound at baseline; requires 2 person assist for transfers to wheelchair's. She does require assistance with meals. Supportive care. Fall precautions. - Time Time Spent with patient: 35 or more minutes Medications reviewed and adjusted accordingly: Yes Anticipated discharge: Home Within: within 72 hours
[2019-04-26] MEDS: NORMAL SALINE 1000 ML 1,000 ML IV PRN (19:06)
--- NOTE | 2019-04-26 20:41 | EKG REPORT ---
SEVERITY:- ABNORMAL ECG - SINUS RHYTHM PROBABLE INFERIOR INFARCT, OLD ABNRM R PROG, CONSIDER ASMI OR LEAD PLACEMENT LATERAL LEADS ARE ALSO INVOLVED BORDERLINE PROLONGED QT INTERVAL : Confirmed by: Alka Garcia MD 26-Apr-2019 20:41:02
[2019-04-26] MEDS: HEPARIN SOD (PORCINE) 5,000 UNIT/ML 1 ML VIAL SUBCUT SCH (22:04)
[2019-04-27] MEDS: HEPARIN SOD (PORCINE) 5,000 UNIT/ML 1 ML VIAL SUBCUT SCH ×3 (05:16→22:02)
[2019-04-27] MEDS: NORMAL SALINE 1000 ML 1,000 ML IV PRN (05:18)
[2019-04-27] MEDS: LEVOTHYROXINE SODIUM 0.05 MG TABLET PO SCH (06:55)
[2019-04-27 08:36] LABS: HEMATOCRIT 32.2 % (36.0-47.0); HEMOGLOBIN 10.6 g/dL (12.0-15.5); MEAN CORPUSCULAR HGB CONC 32.9 g/dL (32.0-36.0); MEAN CORPUSCULAR VOLUME 85 fl (80-97); PLATELET COUNT 248 10^3/uL (150-450); RED BLOOD COUNT 3.79 10^6/uL (3.72-5.28); RED CELL DISTRIBUTION WIDTH 17.1 % (11.5-14.0); WHITE BLOOD COUNT 6.8 10^3/uL (4.0-10.5)
[2019-04-27 08:57] LABS: ANION GAP 7 (5-19); BLOOD UREA NITROGEN 17 mg/dL (7-20); CALCIUM 8.4 mg/dL (8.4-10.2); CARBON DIOXIDE 25 mmol/L (22-30); CHLORIDE 105 mmol/L (98-107); GLUCOSE 82 mg/dL (75-110); POTASSIUM 4.1 mmol/L (3.6-5.0)
[2019-04-27] MEDS ORDERED: CEFTRIAXONE 1 GM/D5W RTU 1 GM/50 ML RTUPB IV SCH (10:00)
[2019-04-27] MEDS: DOCUSATE SODIUM 100 MG CAPSULE PO SCH (10:32)
[2019-04-27] MEDS: CEFTRIAXONE SODIUM 1,000 MG in DEXTROSE 5%-WATER 50 ML IV SCH (10:36)
[2019-04-27] MEDS: ASPIRIN 81 MG TABLET, CHEWABLE PO SCH (10:37)
[2019-04-27] MEDS ORDERED: GUAIFENESIN SYRP 200 MG/10 ML UDC PO PRN (11:21)
[2019-04-27] MEDS ORDERED: HYDRALAZINE HCL INJ/PF 20 MG/1 ML SDV IV PRN (11:22)
--- NOTE | 2019-04-27 11:37 | PDOC PROGRESS REPORT ---
Subjective Progress Note for:: 04/27/19 Subjective:: 84 year old female with a past medical history significant for osteopenia, chronic constipation, hypothyroidism, advanced dementia, who is bedbound at baseline (2 person assist to wheelchair, oriented to self only) who presents to the emergency department today for increased lethargy. Per family members she has not had any specific symptoms and was at her baseline health yesterday but today was noted to be fatigued and difficult to wake. Evaluation in the emergency department is essentially unremarkable other than UTI by urinalysis. Vital signs are stable, WBC is normal, and head CT is benign, chemistry is acceptable. Patient has been provided IV fluids and Rocephin; she is referred to the hospitalist service for admission and management. 04/[id number]-old female with multiple medical problems admitted from [facility] living in [place] with complaints of altered mental status and UTI. Patient is bedbound need assistance to get into the wheelchair. No acute events in the last 24 hours. Afebrile. As per the family members patient is still not at baseline. Patient has history of dementia for more than 7 years. Presently receiving IV fluids and IV antibiotic therapy blood pressures are little bit elevated this morning started on IV hydralazine 10 mg every 6 hours PRN for systolic blood pressure more than 160 and diastolic blood pressure of more than 100. IV fluids are discontinued. blood Cultures and urine cultures are pending. Reason For Visit: UTI, AMS Physical Exam Vital Signs: Temp Pulse Resp BP Pulse Ox 98.0 F 83 16 156/74 H 92 04/27/19 00:47 04/27/19 00:47 04/27/19 00:47 04/27/19 00:47 04/27/19 05:03 Intake & Output 04/26/19 04/27/19 04/28/19 06:59 06:59 06:59 Intake Total 2100 Balance 2100 Weight 53.1 kg General appearance: PRESENT: no acute distress, cooperative, other - Patient has advanced dementia unable to communicate. Head exam: PRESENT: atraumatic Eye exam: PRESENT: PERRLA Mouth exam: PRESENT: moist, tongue midline Teeth exam: PRESENT: poor dentation Neck exam: ABSENT: carotid bruit, JVD, lymphadenopathy, thyromegaly Respiratory exam: PRESENT: clear to auscultation janeen. ABSENT: rales, rhonchi, wheezes Cardiovascular exam: PRESENT: RRR. ABSENT: diastolic murmur, rubs, systolic murmur GI/Abdominal exam: PRESENT: normal bowel sounds, soft. ABSENT: distended, guarding, mass, organolmegaly, rebound, tenderness Rectal exam: PRESENT: deferred Extremities exam: PRESENT: other - Contractures of the lower extremity. Neurological exam: PRESENT: alert, awake, oriented to time, CN II-XII grossly intact. ABSENT: oriented to person, oriented to place, oriented to situation, motor sensory deficit Psychiatric exam: PRESENT: appropriate affect, normal mood. ABSENT: homicidal ideation, suicidal ideation Results Laboratory Results: 04/27/19 07:39 04/27/19 07:39 04/26/19 04/26/19 04/26/19 14:14 14:14 14:36 WBC 10.0 RBC 4.16 Hgb 11.8 L Hct 35.1 L MCV 84 MCH 28.4 MCHC 33.6 RDW 17.1 H Plt Count 342 Seg Neutrophils % 70.9 Lymphocytes % 20.5 Monocytes % 6.9 Eosinophils % 1.3 Basophils % 0.4 Absolute Neutrophils 7.1 Absolute Lymphocytes 2.1 Absolute Monocytes 0.7 Absolute Eosinophils 0.1 Absolute Basophils 0.0 Sodium 136.5 L Potassium 4.7 Chloride 99 Carbon Dioxide 27 Anion Gap 11 BUN 21 H Creatinine 0.82 Est GFR ( Amer) > 60 Est GFR (Non-Af Amer) > 60 Glucose 91 Calcium 9.6 Total Bilirubin 0.6 AST 30 Alkaline Phosphatase 88 Total Protein 7.3 Albumin 3.7 Urine Color YELLOW Urine Appearance CLOUDY Urine pH 6.0 Ur Specific [place] 1.016 Urine Protein 30 H Urine Glucose (UA) NEGATIVE Urine Ketones NEGATIVE Urine Blood MODERATE H Urine Nitrite NEGATIVE Ur Leukocyte Esterase LARGE H Urine WBC (Auto) >182 Urine RBC (Auto) 17 04/27/19 04/27/19 07:39 07:39 WBC 6.8 RBC 3.79 Hgb 10.6 L Hct 32.2 L MCV 85 MCH 28.0 MCHC 32.9 RDW 17.1 H Plt Count 248 Seg Neutrophils % Lymphocytes % Monocytes % Eosinophils % Basophils % Absolute Neutrophils Absolute Lymphocytes Absolute Monocytes Absolute Eosinophils Absolute Basophils Sodium 136.6 L Potassium 4.1 Chloride 105 Carbon Dioxide 25 Anion Gap 7 BUN 17 Creatinine 0.74 Est GFR ( Amer) > 60 Est GFR (Non-Af Amer) > 60 Glucose 82 Calcium 8.4 Total Bilirubin AST Alkaline Phosphatase Total Protein Albumin Urine Color Urine Appearance Urine pH Ur Specific [place] Urine Protein Urine Glucose (UA) Urine Ketones Urine Blood Urine Nitrite Ur Leukocyte Esterase Urine WBC (Auto) Urine RBC (Auto) 04/26/19 04/26/19 14:14 14:14 CK-MB (CK-2) 1.41 Troponin I 0.013 Impressions: Head CT 04/26/19 14:25 IMPRESSION: MICROVASCULAR ISCHEMIA AND GENERALIZED ATROPHY. NO ACUTE IMAGING FINDINGS IN THE BRAIN EVIDENCE OF ACUTE STROKE: NO. Assessment and Plan - Diagnosis (1) Urinary tract infection Qualifiers: Urinary tract infection type: acute cystitis Hematuria presence: without hematuria Qualified Code(s): N30.00 - Acute cystitis without hematuria Is this a current diagnosis for this admission?: Yes Plan: Urinalysis reveals urinary tract infection. Blood and urine cultures pending. Patient is admitted to the medical floor She is provided gentle IV fluids. She is empirically placed on Rocephin; Will adjust as cultures result. 04/27/2019-elderly female admitted from the assisted living with UTI. Presently on IV Rocephin. Blood cultures and urine cultures are pending. Plan is to continue the present management and to arrange for the labs tomorrow. (2) Delirium due to another medical condition Is this a current diagnosis for this admission?: Yes Plan: Supportive care; fall precautions. Assist with meals. IV fluids and antibiotics as above. 10/28/2018-patient has history of dementia for more than 7 years and causing altered mental status may be secondary to UTI. (3) Dementia Is this a current diagnosis for this admission?: Yes Plan: Baseline dementia; patient oriented to self only, she is socially appropriate and conversational (although per daughter patient does not make much sense). She is bedbound at baseline; requires 2 person assist for transfers to wheelchair's. She does require assistance with meals. Supportive care. Fall precautions. 04/27/2019-patient is bedbound need assistance to get into the wheelchair patient has advanced dementia. Plan is to continue the supportive care. (4) HTN (hypertension) Is this a current diagnosis for this admission?: Yes Plan: 04/27/2019-patient blood pressure was elevated this morning with a systolic blood pressure more than 160 present on IV fluids and IV fluids are discontinued started on IV hydralazine 10 mg IV every 6 PRN for systolic blood pressure more than 1 $60 to blood pressure more than 100. Plan is to closely watch the blood pressures every shift. - Time Time Spent with patient: 25-34 minutes Medications reviewed and adjusted accordingly: Yes Anticipated discharge: SNF
[2019-04-27] MEDS: MELATONIN 5 MG TABLET PO SCH (22:03)
[2019-04-28] MEDS: LEVOTHYROXINE SODIUM 0.05 MG TABLET PO SCH (05:34)
[2019-04-28] MEDS: HEPARIN SOD (PORCINE) 5,000 UNIT/ML 1 ML VIAL SUBCUT SCH ×3 (05:42→22:28)
[2019-04-28 06:34] LABS: ABSOLUTE EOSINOPHILS # (AUTO) 0.3 10^3/uL (0.0-0.6); ABSOLUTE LYMPHOCYTES (AUTO) 1.4 10^3/uL (0.5-4.7); ABSOLUTE MONOCYTES (AUTO) 0.5 10^3/uL (0.1-1.4); ABSOLUTE NEUT (AUTO) 3.5 10^3/uL (1.7-8.2); BASOPHILS % (AUTO) 0.4 % (0-2); HEMATOCRIT 29.9 % (36.0-47.0); LYMPHOCYTES % (AUTO) 24.9 % (13-45); MEAN CORPUSCULAR HEMOGLOBIN 28.3 pg (27.0-33.4); MEAN CORPUSCULAR HGB CONC 33.3 g/dL (32.0-36.0); MEAN CORPUSCULAR VOLUME 85 fl (80-97); MONOCYTES % (AUTO) 8.5 % (3-13); PLATELET COUNT 249 10^3/uL (150-450); RED BLOOD COUNT 3.52 10^6/uL (3.72-5.28); RED CELL DISTRIBUTION WIDTH 17.1 % (11.5-14.0); SEGMENTED NEUTROPHILS % (AUTO) 61.2 % (42-78); TOTAL CELLS COUNTED % (AUTO) 100 %; WHITE BLOOD COUNT 5.8 10^3/uL (4.0-10.5)
[2019-04-28 07:03] LABS: ALBUMIN 2.8 g/dL (3.5-5.0); ALKALINE PHOSPHATASE 62 U/L (38-126); ANION GAP 6 (5-19); ASPARTATE AMINO TRANSFERASE 22 U/L (14-36); BILIRUBIN,DIRECT 0.3 mg/dL (0.0-0.4); BILIRUBIN,TOTAL 0.5 mg/dL (0.2-1.3); BLOOD UREA NITROGEN 15 mg/dL (7-20); CALCIUM 8.8 mg/dL (8.4-10.2); CARBON DIOXIDE 26 mmol/L (22-30); CHLORIDE 106 mmol/L (98-107); GLUCOSE 73 mg/dL (75-110)
[2019-04-28] MEDS ORDERED: (PENDING PHARMACY ID) (Ascorbic Acid [Vitamin C] 500 MG) PO SCH (10:00)
[2019-04-28] MEDS: ASCORBIC ACID 500 MG TABLET PO SCH (10:00)
[2019-04-28] MEDS: CEFTRIAXONE SODIUM 1,000 MG in DEXTROSE 5%-WATER 50 ML IV SCH (10:04)
[2019-04-28] MEDS: CYANOCOBALAMIN (VITAMIN B-12) 1,000 MCG TABLET PO SCH (10:04)
[2019-04-28] MEDS: CHOLECALCIFEROL (D3) 400 UNIT TABLET PO SCH (10:04)
[2019-04-28] MEDS: ASPIRIN 81 MG TABLET, CHEWABLE PO SCH (10:04)
[2019-04-28] MEDS: DOCUSATE SODIUM 100 MG CAPSULE PO SCH (10:05)
--- NOTE | 2019-04-28 12:29 | PDOC PROGRESS REPORT ---
Subjective Progress Note for:: 04/28/19 Subjective:: 84 year old female with a past medical history significant for osteopenia, chronic constipation, hypothyroidism, advanced dementia, who is bedbound at baseline (2 person assist to wheelchair, oriented to self only) who presents to the emergency department today for increased lethargy. Per family members she has not had any specific symptoms and was at her baseline health yesterday but today was noted to be fatigued and difficult to wake. Evaluation in the emergency department is essentially unremarkable other than UTI by urinalysis. Vital signs are stable, WBC is normal, and head CT is benign, chemistry is acceptable. Patient has been provided IV fluids and Rocephin; she is referred to the hospitalist service for admission and management. 04/[id number]-old female with multiple medical problems admitted from [facility] living in [place] with complaints of altered mental status and UTI. Patient is bedbound need assistance to get into the wheelchair. No acute events in the last 24 hours. Afebrile. As per the family members patient is still not at baseline. Patient has history of dementia for more than 7 years. Presently receiving IV fluids and IV antibiotic therapy blood pressures are little bit elevated this morning started on IV hydralazine 10 mg every 6 hours PRN for systolic blood pressure more than 160 and diastolic blood pressure of more than 100. IV fluids are discontinued. blood Cultures and urine cultures are pending. 04/[id number]-ekid-old female admitted for altered mental status and UTI cultures are negative so far. Patient is presently on IV Rocephin. More alert more awake as per the family members. The daughter wants to keep her at least another day for completion of antibiotic therapy. Reason For Visit: UTI, AMS Physical Exam Vital Signs: Temp Pulse Resp BP Pulse Ox 97.6 F 60 14 153/56 H 100 04/28/19 07:55 04/28/19 07:55 04/28/19 07:55 04/28/19 07:55 04/28/19 07:55 Intake & Output 04/27/19 04/28/19 04/29/19 06:59 06:59 06:59 Intake Total 2100 910 Balance 2100 910 Weight 53.1 kg 58.1 kg General appearance: PRESENT: no acute distress, cooperative Head exam: PRESENT: atraumatic Eye exam: PRESENT: PERRLA Mouth exam: PRESENT: moist, tongue midline Teeth exam: PRESENT: edentulous Neck exam: ABSENT: carotid bruit, JVD, lymphadenopathy, thyromegaly Respiratory exam: PRESENT: decreased breath sounds Cardiovascular exam: PRESENT: RRR. ABSENT: diastolic murmur, rubs, systolic murmur GI/Abdominal exam: PRESENT: normal bowel sounds, soft. ABSENT: distended, guarding, mass, organolmegaly, rebound, tenderness Rectal exam: PRESENT: deferred Extremities exam: PRESENT: full ROM. ABSENT: calf tenderness, clubbing, pedal edema Neurological exam: PRESENT: alert, awake, CN II-XII grossly intact. ABSENT: motor sensory deficit Psychiatric exam: PRESENT: appropriate affect, normal mood. ABSENT: homicidal ideation, suicidal ideation Results Laboratory Results: 04/28/19 05:10 04/28/19 05:10 04/28/19 04/28/19 05:10 05:10 WBC 5.8 RBC 3.52 L Hgb 10.0 L Hct 29.9 L MCV 85 MCH 28.3 MCHC 33.3 RDW 17.1 H Plt Count 249 Seg Neutrophils % 61.2 Lymphocytes % 24.9 Monocytes % 8.5 Eosinophils % 5.0 Basophils % 0.4 Absolute Neutrophils 3.5 Absolute Lymphocytes 1.4 Absolute Monocytes 0.5 Absolute Eosinophils 0.3 Absolute Basophils 0.0 Sodium 137.9 Potassium 4.0 Chloride 106 Carbon Dioxide 26 Anion Gap 6 BUN 15 Creatinine 0.69 Est GFR ( Amer) > 60 Est GFR (Non-Af Amer) > 60 Glucose 73 L Calcium 8.8 Magnesium 1.8 Total Bilirubin 0.5 AST 22 Alkaline Phosphatase 62 Total Protein 6.0 L Albumin 2.8 L 04/26/19 04/26/19 14:14 14:14 CK-MB (CK-2) 1.41 Troponin I 0.013 Impressions: Head CT 04/26/19 14:25 IMPRESSION: MICROVASCULAR ISCHEMIA AND GENERALIZED ATROPHY. NO ACUTE IMAGING FINDINGS IN THE BRAIN EVIDENCE OF ACUTE STROKE: NO. Assessment and Plan - Diagnosis (1) Urinary tract infection Qualifiers: Urinary tract infection type: acute cystitis Hematuria presence: without hematuria Qualified Code(s): N30.00 - Acute cystitis without hematuria Is this a current diagnosis for this admission?: Yes Plan: Urinalysis reveals urinary tract infection. Blood and urine cultures pending. Patient is admitted to the medical floor She is provided gentle IV fluids. She is empirically placed on Rocephin; Will adjust as cultures result. 04/27/2019-elderly female admitted from the assisted living with UTI. Presently on IV Rocephin. Blood cultures and urine cultures are pending. Plan is to continue the present management and to arrange for the labs tomorrow. 04/28/2019-patient admitted from the assisted living facility with UTI. On IV Rocephin. Cultures are negative so far. Plan is to repeat the labs tomorrow and probably discharge to assisted living tomorrow. (2) Delirium due to another medical condition Is this a current diagnosis for this admission?: Yes Plan: Supportive care; fall precautions. Assist with meals. IV fluids and antibiotics as above. 04/27/2019-patient has history of dementia for more than 7 years and causing altered mental status may be secondary to UTI. 04/28/2019-patient has history of dementia and it may be exacerbated by UTI. Patient is more alert more awake today close to the baseline as per the family members. (3) Dementia Is this a current diagnosis for this admission?: Yes (4) HTN (hypertension) Is this a current diagnosis for this admission?: Yes Plan: 04/27/2019-patient blood pressure was elevated this morning with a systolic blood pressure more than 160 present on IV fluids and IV fluids are discontinued started on IV hydralazine 10 mg IV every 6 PRN for systolic blood pressure more than 1 $60 to blood pressure more than 100. Plan is to closely watch the blood pressures every shift. 04/28/2019-patient blood pressure today is 136/57 stable. Plan is to continue the present management. - Time Time Spent with patient: 15-24 minutes Medications reviewed and adjusted accordingly: Yes Anticipated discharge: Other - Assisted living
[2019-04-28] MEDS: MELATONIN 5 MG TABLET PO SCH (22:28)
[2019-04-29 04:56] LABS: ABSOLUTE BASOPHILS # (AUTO) 0.1 10^3/uL (0.0-0.2); ABSOLUTE EOSINOPHILS # (AUTO) 0.2 10^3/uL (0.0-0.6); ABSOLUTE LYMPHOCYTES (AUTO) 1.5 10^3/uL (0.5-4.7); ABSOLUTE MONOCYTES (AUTO) 0.5 10^3/uL (0.1-1.4); ABSOLUTE NEUT (AUTO) 4.4 10^3/uL (1.7-8.2); BASOPHILS % (AUTO) 0.8 % (0-2); EOSINOPHILS % (AUTO) 2.9 % (0-6); HEMATOCRIT 31.5 % (36.0-47.0); HEMOGLOBIN 10.4 g/dL (12.0-15.5); LYMPHOCYTES % (AUTO) 22.6 % (13-45); MEAN CORPUSCULAR HEMOGLOBIN 27.8 pg (27.0-33.4); MEAN CORPUSCULAR HGB CONC 32.9 g/dL (32.0-36.0); MEAN CORPUSCULAR VOLUME 85 fl (80-97); MONOCYTES % (AUTO) 7.6 % (3-13); PLATELET COUNT 284 10^3/uL (150-450); RED BLOOD COUNT 3.73 10^6/uL (3.72-5.28); RED CELL DISTRIBUTION WIDTH 16.9 % (11.5-14.0); SEGMENTED NEUTROPHILS % (AUTO) 66.1 % (42-78); TOTAL CELLS COUNTED % (AUTO) 100 %; WHITE BLOOD COUNT 6.7 10^3/uL (4.0-10.5)
[2019-04-29 05:20] LABS: ALKALINE PHOSPHATASE 72 U/L (38-126); ANION GAP 6 (5-19); ASPARTATE AMINO TRANSFERASE 22 U/L (14-36); BILIRUBIN,DIRECT 0.3 mg/dL (0.0-0.4); BILIRUBIN,TOTAL 0.5 mg/dL (0.2-1.3); BLOOD UREA NITROGEN 14 mg/dL (7-20); CALCIUM 8.9 mg/dL (8.4-10.2); CARBON DIOXIDE 27 mmol/L (22-30); CHLORIDE 105 mmol/L (98-107); GLUCOSE 100 mg/dL (75-110); POTASSIUM 3.9 mmol/L (3.6-5.0); TOTAL PROTEIN 6.4 g/dL (6.3-8.2)
[2019-04-29] MEDS: HEPARIN SOD (PORCINE) 5,000 UNIT/ML 1 ML VIAL SUBCUT SCH (06:02)
[2019-04-29] MEDS: LEVOTHYROXINE SODIUM 0.05 MG TABLET PO SCH (06:03)
[2019-04-29] MEDS ORDERED: MAGNESIUM SULFATE 454 GM CARTON TOP SCH (08:00)
[2019-04-29] MEDS: DOCUSATE SODIUM 100 MG CAPSULE PO SCH (09:37)
[2019-04-29] MEDS: ASCORBIC ACID 500 MG TABLET PO SCH (09:37)
[2019-04-29] MEDS: ASPIRIN 81 MG TABLET, CHEWABLE PO SCH (09:37)
[2019-04-29] MEDS: CYANOCOBALAMIN (VITAMIN B-12) 1,000 MCG TABLET PO SCH (09:37)
[2019-04-29] MEDS: CHOLECALCIFEROL (D3) 400 UNIT TABLET PO SCH (09:37)
[2019-04-29] MEDS ORDERED: CEFTRIAXONE 1 GM/D5W RTU 1 GM/50 ML RTUPB IV SCH (10:00)
--- NOTE | 2019-04-29 14:30 | PDOC TRANSFER SUMMARY ---
General - Admit/Disc Date/PCP Admission Date/Primary Care Provider: 04/26/19 16:45 Discharge Date: 04/29/19 - Discharge Diagnosis (1) Urinary tract infection Is this a current diagnosis for this admission?: Yes Summary: Urinalysis reveals urinary tract infection. Blood and urine cultures pending. Patient is admitted to the medical floor She is provided gentle IV fluids. She is empirically placed on Rocephin; Will adjust as cultures result. 04/27/2019-elderly female admitted from the assisted living with UTI. Presently on IV Rocephin. Blood cultures and urine cultures are pending. Plan is to continue the present management and to arrange for the labs tomorrow. 04/28/2019-patient admitted from the assisted living facility with UTI. On IV Rocephin. Cultures are negative so far. Plan is to repeat the labs tomorrow and probably discharge to assisted living tomorrow. 04/29/2019-patient is admitted from assisted living for altered mental status and UTI. On IV Rocephin patient is going back to assisted living on Bactrim. (2) Delirium due to another medical condition Is this a current diagnosis for this admission?: Yes Summary: Supportive care; fall precautions. Assist with meals. IV fluids and antibiotics as above. 04/27/2019-patient has history of dementia for more than 7 years and causing a ltered mental status may be secondary to UTI. 04/28/2019-patient has history of dementia and it may be exacerbated by UTI. Patient is more alert more awake today close to the baseline as per the family members. 04/29/2019-patient has history of dementia probably exacerbated by UTI as per the family members mental status is back to baseline. (3) Dementia Is this a current diagnosis for this admission?: Yes (4) HTN (hypertension) Is this a current diagnosis for this admission?: Yes Summary: 04/27/2019-patient blood pressure was elevated this morning with a systolic blood pressure more than 160 present on IV fluids and IV fluids are discontinued started on IV hydralazine 10 mg IV every 6 PRN for systolic blood pressure more than 160 to blood pressure more than 100. Plan is to closely watch the blood pressures every shift. 04/28/2019-patient blood pressure today is 136/57 stable. Plan is to continue the present management. 04/29/2019-patient blood pressure today is 154/74. Stable. Patient family is advised to continue the present management. - Additional Information Resuscitation Status: Do Not Resuscitate Discharge Diet: Cardiac Discharge Activity: Activity As Tolerated Prescriptions: Sulfamethoxazole/Trimethoprim [Bactrim Ds Tablet] 1 each PO BID #7 tablet Home Medications: Acetaminophen [Tylenol Extra Strength 500 mg Tablet] 500 mg PO Q4HP PRN 04/26/19 Alendronate Sodium [Fosamax 70 mg Tablet] 70 mg PO SA@0600 04/26/19 Ascorbic Acid [Vitamin C] 500 mg PO DAILY 04/26/19 Aspirin [Aspirin 81 mg Chewable Tablet] 81 mg PO DAILY 04/26/19 Cholecalciferol (Vitamin D3) [Vitamin D3 400 Unit Tablet] 400 unit PO DAILY 04/08 05/27 Cyanocobalamin (Vitamin B-12) [Vitamin B-12 1000 mcg Tablet] 1,000 mcg PO DAILY 04/26/19 Docusate Sodium [Colace 100 mg Capsule] 100 mg PO DAILY 04/26/19 Guaifenesin [Robafen] 10 ml PO Q4HP PRN 04/26/19 Levothyroxine Sodium [Synthroid 0.05 mg Tablet] 0.05 mg PO Q6AM 04/26/19 Mag Hydrox/Aluminum Hyd/Simeth [Almacone Suspension] 30 ml PO Q4HP PRN 04/26/19 Magnesium Hydroxide [Milk of Magnesia 30 ml Udcup] 30 ml PO DAILYP PRN 04/26/19 Magnesium Sulfate [Epsom Salt 454 gm Carton] 1 applic TOP MOTH@0800 04/26/19 Melatonin [Melatonin 5 mg Tablet] 5 mg PO QHS 04/26/19 Sulfamethoxazole/Trimethoprim [Bactrim Ds Tablet] 1 each PO BID #7 tablet 04/29/19 History of Present Illness Admission Date/PCP: 04/26/19 16:45 History of Present Illness: ALIYAH DENISE is a 84 year old female 84 year old female with a past medical history significant for osteopenia, chronic constipation, hypothyroidism, advanced dementia, who is bedbound at baseline (2 person assist to wheelchair, oriented to self only) who presents to the emergency department today for increased lethargy. Per family members she has not had any specific symptoms and was at her baseline health yesterday but today was noted to be fatigued and difficult to wake. Evaluation in the emergency department is essentially unremarkable other than UTI by urinalysis. Vital signs are stable, WBC is normal, and head CT is benign, chemistry is acceptable. Patient has been provided IV fluids and Rocephin; [facility] for [facility] and management. Hospital Course Hospital Course: 84 year old female with a past medical history significant for osteopenia, ch ronic constipation, hypothyroidism, advanced dementia, who is bedbound at baseline (2 person assist to wheelchair, oriented to self only) who presents to the emergency department today for increased lethargy. Per family members she has not had any specific symptoms and was at her baseline health yesterday but today was noted to be fatigued and difficult to wake. Evaluation in the emergency department is essentially unremarkable other than UTI by urinalysis. Vital signs are stable, WBC is normal, and head CT is benign, chemistry is acceptable. Patient has been provided IV fluids and Rocephin; she is referred to the hospitalist service for admission and management. 04/27/[id number]-nbrk-old female with multiple medical problems admitted from assisted living in [place] with complaints of altered mental status and UTI. Patient is bedbound need assistance to get into the wheelchair. No acute events in the last 24 hours. Afebrile. As per the family members patient is still not at baseline. Patient has history of dementia for more than 7 years. Presently receiving IV fluids and IV antibiotic therapy blood pressures are little bit elevated this morning started on IV hydralazine 10 mg every 6 hours PRN for systolic blood pressure more than 160 and diastolic blood pressure of more than 100. IV fluids are discontinued. blood Cultures and urine cultures are pending. 04/28/[id number]-ebix-old female admitted for altered mental status and UTI cultures are negative so far. Patient is presently on IV Rocephin. More alert more awake as per the family members. The daughter wants to keep her at least another day for completion of antibiotic therapy. 04/29/[id number]-fadp-old female admitted for altered mental status and UTI cultures are negative so far. Patient is going back to assisted living with p.o. antibiotics as per the family members mental status is back to the baseline. sHe is going back to assisted living today. Physical Exam Vital Signs: Temp Pulse Resp BP Pulse Ox 97.4 F 60 16 137/63 H 94 04/29/19 11:06 04/29/19 11:06 04/29/19 11:06 04/29/19 11:06 04/29/19 11:06 Intake & Output 04/28/19 04/29/19 04/30/19 06:59 06:59 06:59 Intake Total 910 250 50 Balance 910 250 50 Weight 58.1 kg 45.9 kg General appearance: PRESENT: no acute distress, cooperative Head exam: PRESENT: atraumatic Eye exam: PRESENT: PERRLA Mouth exam: PRESENT: moist, tongue midline Teeth exam: PRESENT: edentulous Neck exam: ABSENT: carotid bruit, JVD, lymphadenopathy, thyromegaly Respiratory exam: PRESENT: decreased breath sounds Cardiovascular exam: PRESENT: RRR. ABSENT: diastolic murmur, rubs, systolic murmur GI/Abdominal exam: PRESENT: normal bowel sounds, soft. ABSENT: distended, guarding, mass, organolmegaly, rebound, tenderness Rectal exam: PRESENT: deferred Extremities exam: PRESENT: full ROM. ABSENT: calf tenderness, clubbing, pedal edema Neurological exam: PRESENT: alert, awake, oriented to person, oriented to place, oriented to time, oriented to situation, CN II-XII grossly intact. ABSENT: motor sensory deficit Psychiatric exam: PRESENT: appropriate affect, normal mood. ABSENT: homicidal ideation, suicidal ideation Results Laboratory Results: 04/29/19 04:30 04/29/19 04:30 04/29/19 04/29/19 04:30 04:30 WBC 6.7 RBC 3.73 Hgb 10.4 L Hct 31.5 L MCV 85 MCH 27.8 MCHC 32.9 RDW 16.9 H Plt Count 284 Seg Neutrophils % 66.1 Sodium 138.0 Potassium 3.9 Chloride 105 Carbon Dioxide 27 Anion Gap 6 BUN 14 Creatinine 0.62 Est GFR ( Amer) > 60 Glucose 100 Calcium 8.9 Magnesium 1.6 Total Bilirubin 0.5 AST 22 Alkaline Phosphatase 72 Total Protein 6.4 Albumin 3.0 L 04/26/19 14:36 Catheterized Urine Urine Culture - Final Yeast, Not Briana Albicans Mixed Urogenital Nguyen 04/26/19 04/26/19 14:14 14:14 CK-MB (CK-2) 1.41 Troponin I 0.013 Impressions: Head CT 04/26/19 14:25 IMPRESSION: MICROVASCULAR ISCHEMIA AND GENERALIZED ATROPHY. NO ACUTE IMAGING FINDINGS IN THE BRAIN EVIDENCE OF ACUTE STROKE: NO. Transfer Plan - Time Spent with Patient Time spent with patient: Greater than 30 Minutes Qualifiers - * PATIENT BEING DISCHARGED WITH ANY OF THE FOLLOWING DIAGNOSIS: No Acute Heart Failure - Is this a Heart Failure Patient?: No Plan Time Spent: Greater than 30 Minutes
[2019-04-29 15:15] VITALS: BP 110/47
[2019-05-01] MEDS ORDERED: (PENDING PHARMACY ID) (Alendronate Sodium [Fosamax 70 Mg Tablet] 70 MG) PO SCH (06:00)
== END 2019-04-29 19:30 | disposition home health service (06) ==
LOC: ER 13:40 → EH 16:45 → INTOOBSV 16:45 → 4S 20:12
PROVIDERS: ADMIT Family Medicine; ATTEND Family Medicine
DX: N30.00 Acute cystitis without hematuria (principal); F03.90 Unspecified dementia, unspecified severity, without behavioral disturbance, psychotic disturbance, mood disturbance, and anxiety; F05 Delirium due to known physiological condition; I10 Essential (primary) hypertension; E03.9 Hypothyroidism, unspecified; M85.80 Other specified disorders of bone density and structure, unspecified site; K59.09 Other constipation; Z74.01 Bed confinement status; M19.90 Unspecified osteoarthritis, unspecified site; R63.0 Anorexia; R53.83 Other fatigue; Z79.82 Long term (current) use of aspirin; Z66 Do not resuscitate; Z79.899 Other long term (current) drug therapy
CPT/HCPCS: 93005; 99285; 96361; 96365; 36415 ×4; 87040; 87086; 82553; 83735 ×2; 85025 ×3; 85027; 80048; 80053 ×3; 81001; 84484; 70450; 93010; G0378 ×5; A9270 ×16; J1644 ×2; J0360; J0696 ×4; J7060 ×2; J7030 ×2; J3490

== ENCOUNTER 2020-06-21 19:47 | Emergency (ER) | payer MEDICARE ==
--- NOTE | 2020-06-21 21:16 | ER Document Report ---
ED General - General Chief Complaint: Fever Stated Complaint: FEVER Time Seen by Provider: 06/21/20 20:45 Primary Care Provider: MARIE RIVERS MD [ACTIVE STAFF] - Follow up as needed Information source: Relative TRAVEL OUTSIDE OF THE [place] IN LAST 30 DAYS: No - HPI Notes: Patient is an 85-year-old female with a history of dementia, hypothyroidism and pacemaker who presents with fever that occurred just prior to arrival. Patient is a resident at [facility] which is an assisted living facility with 33 residents currently. Daughter states that the patient was taking a drink around 1PM this afternoon when she coughed. The DEBT COUNSELOR noted a rattle in her throat and became concerned and notified the onsite doctor. A chest x-ray was done which showed no signs of pneumonia. The doctor prescribed Mucinex and Levaquin for prophylactic treatment. Daughter states she was at the store picking them up when she was called to be notified that the patient now had a fever of 100.2 and was oxygenating at 88%. They felt it would be in the pat ient's best interest to come to the ED for further evaluation. She was given 1 dose of Tylenol at the facility before arriving to the ED. Daughter states the patient has been complaining of no other symptoms and denies chest pain, shortness of breath, abdominal pain, nausea, vomiting, and dysuria. Daughter states that patient's normal O2 sat is in the low 90s. - Related Data Allergies/Adverse Reactions: No Known Allergies Allergy (Unverified 07/16/18 12:21) Past Medical History - General Information source: Relative Cannot obtain history due to: Dementia - Social History Smoking Status: Former Smoker Family History: Reviewed & Not Pertinent - Past Medical History Cardiac Medical History: Reports: Hx Hypercholesterolemia Denies: Hx Congestive Heart Failure, Hx Heart Attack, Hx Hypertension Pulmonary Medical History: Denies: Hx Asthma, Hx Bronchitis, Hx COPD, Hx Pneumonia, Hx Tuberculosis Neurological Medical History: Denies: Hx Seizures, Hx Parkinson's Disease Endocrine Medical History: Reports: Hx Hypothyroidism Renal/ Medical History: Denies: Hx End Stage Renal Disease, Hx Kidney Stones, Hx Peritoneal Dialysis GI Medical History: Reports: Hx Gastroesophageal Reflux Disease, Hx Hiatal Hernia. Denies: Hx Cirrhosis, Hx Ulcer Musculoskeletal Medical History: Reports Hx Arthritis - generalized, Denies Hx Multiple Sclerosis Psychiatric Medical History: Reports: Hx Depression Denies: Hx Bipolar Disorder, Hx Schizophrenia Past Surgical History: Reports: Hx Abdominal Surgery - hernia surgery, Hx Cardiac Surgery - pacemaker, Hx Hysterectomy, Hx Pacemaker - Immunizations Hx Diphtheria, Pertussis, Tetanus Vaccination: No Review of Systems - Review of Systems -: Yes ROS unobtainable due to patient's medical condition Physical Exam - Vital signs Vitals: BP Pulse Ox 100/67 93 06/21/20 20:10 06/21/20 20:10 - Notes Notes: PHYSICAL EXAMINATION: VITALS: Vitals reviewed and within normal limits. GENERAL: Frail, thin elderly woman asleep in bed in no acute distress. HEAD: Atraumatic, normocephalic. EYES: Pupils equal, round, and reactive to light, extraocular movements intact, sclera anicteric, conjunctiva are normal. ENT: Nares patent. Moist mucous membranes. Oropharynx clear without exudates. NECK: Normal range of motion, supple without lymphadenopathy. LUNGS: Breath sounds clear to auscultation bilaterally and equal. No wheezes rales or rhonchi. HEART: Regular, rate, and rhythm without murmurs. ABDOMEN: Soft, nontender, normoactive bowel sounds. No guarding, no rebound. No masses appreciated. EXTREMITIES: Normal range of motion, no pitting or edema. No cyanosis. NEUROLOGICAL: No focal neurological deficits. Moves all extremities spontaneously and on command. PSYCH: Normal mood, normal affect. SKIN: Warm, Dry, normal turgor, no rashes or lesions noted. Course - Re-evaluation Re-evalutation: 85-year-old female with a history of dementia presents for fever. Patient was sent over by her assisted living facility due to concern of possible pneumonia. She had a chest x-ray earlier this afternoon which was negative but she had a low-grade fever of 100.2 F and an oxygen saturation of 88% which prompted them to send to the emergency department. Daughter is not too concerned as her maxnie l oxygen saturation is in the low 90s and she has not been complaining of any symptoms. Vital signs are within normal limits and patient is afebrile here in the emergency department. On exam, patient appears nontoxic with lungs clear to auscultation bilaterally and regular heart rate and rhythm. Chest XR shows low lung volumes with consolidation in the left perihilar and lower lobe concerning for pneumonia or aspiration. WBC mildly elevated at 10.7. CMP is unremarkable and within normal limits. UA shows large leukocyte esterase and elevated protein of 30. Urine culture ordered. I discussed results with the patient's daughter. Because the patient has been afebrile, oxygenating well and appears nontoxic, I feel the patient is safe to be discharged home with outpatient treatment for pneumonia. Prescription for Doxycycline 100mg BID PO given. First dose given prior to discharge. We had a discussion about COVID testing but daughter declines. Return precautions and follow up instructions given. - Vital Signs Vital signs: Temp Pulse Resp BP Pulse Ox 97.7 F 73 20 107/70 99 06/22/20 01:01 06/21/20 20:28 06/22/20 01:01 06/22/20 01:01 06/22/20 01:01 - Laboratory Result Diagrams: 06/21/20 22:10 06/21/20 22:10 Laboratory results interpreted by me: 06/21/20 06/21/20 06/21/20 22:10 22:10 22:50 WBC 10.7 H Hct 35.0 L RDW 14.6 H Sodium 135.2 L BUN 24 H Direct Bilirubin 0.5 H Total Protein 6.2 L Albumin 2.7 L Urine Protein 30 H Urine Urobilinogen 2.0 H Ur Leukocyte Esterase LARGE H Urine Ascorbic Acid 40 H - Diagnostic Test Radiology reviewed: Image reviewed, Reports reviewed Radiology results interpreted by me: Chest X-Ray 06/21/20 21:10 IMPRESSION: Low lung volumes with consolidation in the left perihilar and lower lobe concerning for pneumonia or aspiration. Discharge - Discharge Clinical Impression: Pneumonia, Fever Dementia Qualifiers: Dementia type: unspecified type Dementia behavioral disturbance: without behavioral disturbance Qualified Code(s): F03.90 - Unspecified dementia without behavioral disturbance Condition: Stable Disposition: HOME-ASSISTED LIVING Additional Instructions: Pneumonia Your examination indicates that you have pneumonia. This is an infection of the lung tissue, usually caused by bacteria or a virus. Symptoms include cough, fever, shaking chills, chest pain, shortness of breath, and coughing up bloody sputum. Treatment for bacterial pneumonia includes rest, antibiotics for 10 to 14 days, increasing your clear liquid intake, a cool mist humidifier at your bedside, and fever medication. Often, a repeat chest X-ray is performed in a few weeks--even if you feel better--to ascertain whether the infection has completely resolved and no underlying lung problem is present. You should call the physician if you develop persistent vomiting, high fever that does not respond to fever medication, increasing shortness of breath, confusion, or lethargy. Also, failure to improve within two to three days is an indication for re-examination. Prescriptions: Doxycycline Hyclate 100 mg PO BID 7 Days #14 tablet.dr Referrals: MARIE RIVERS MD [ACTIVE STAFF] - Follow up as needed
--- NOTE | 2020-06-21 22:03 | RADIOLOGY REPORT (SQ) ---
EXAM DESCRIPTION: X-ray, single view of the chest CLINICAL HISTORY: 85 years Female, fever COMPARISON: None. FINDINGS: Lungs: Lung volumes are low. There is consolidation with air bronchograms predominantly in the left perihilar and lower lobe. Probable left pleural effusion. No pneumothorax. Mediastinum: Heart size is enlarged. Dual-chamber pacemaker is seen. Vascular calcifications are present in the thoracic aorta. There is widening of the superior mediastinum which may be related to technique and low lung volumes. Bones: Degenerative arthritis is present in the shoulder joints. IMPRESSION: Low lung volumes with consolidation in the left perihilar and lower lobe concerning for pneumonia or aspiration.
[2020-06-21 22:42] LABS: ABSOLUTE EOSINOPHILS # (AUTO) 0.1 10^3/uL (0.0-0.6); ABSOLUTE LYMPHOCYTES (AUTO) 1.6 10^3/uL (0.5-4.7); ABSOLUTE MONOCYTES (AUTO) 0.8 10^3/uL (0.1-1.4); ABSOLUTE NEUT (AUTO) 8.1 10^3/uL (1.7-8.2); BASOPHILS % (AUTO) 0.4 % (0-2); EOSINOPHILS % (AUTO) 1.4 % (0-6); MEAN CORPUSCULAR HEMOGLOBIN 31.2 pg (27.0-33.4); MEAN CORPUSCULAR HGB CONC 34.2 g/dL (32.0-36.0); MEAN CORPUSCULAR VOLUME 91 fl (80-97); MONOCYTES % (AUTO) 7.9 % (3-13); PLATELET COUNT 439 10^3/uL (150-450); RED BLOOD COUNT 3.84 10^6/uL (3.72-5.28); RED CELL DISTRIBUTION WIDTH 14.6 % (11.5-14.0); SEGMENTED NEUTROPHILS % (AUTO) 75.3 % (42-78); TOTAL CELLS COUNTED % (AUTO) 100 %; WHITE BLOOD COUNT 10.7 10^3/uL (4.0-10.5)
[2020-06-21 22:56] LABS: ALBUMIN 2.7 g/dL (3.5-5.0); ALKALINE PHOSPHATASE 119 U/L (38-126); ANION GAP 7 (5-19); ASPARTATE AMINO TRANSFERASE 29 U/L (14-36); BILIRUBIN,DIRECT 0.5 mg/dL (0.0-0.4); BILIRUBIN,TOTAL 0.7 mg/dL (0.2-1.3); BLOOD UREA NITROGEN 24 mg/dL (7-20); CALCIUM 8.9 mg/dL (8.4-10.2); CARBON DIOXIDE 29 mmol/L (22-30); CHLORIDE 99 mmol/L (98-107); GLUCOSE 95 mg/dL (75-110); POTASSIUM 4.6 mmol/L (3.6-5.0); TOTAL PROTEIN 6.2 g/dL (6.3-8.2)
[2020-06-21 23:16] LABS: APPEARANCE,URINE SLIGHTLY-CLOUDY; BILIRUBIN,URINE NEGATIVE (NEGATIVE); COLOR,URINE YELLOW; GLUCOSE, URINE NEGATIVE (NEGATIVE); KETONES,URINE NEGATIVE (NEGATIVE); LEUKOCYTE ESTERASE,URINE LARGE (NEGATIVE); NITRITE,URINE NEGATIVE (NEGATIVE); PROTEIN,URINE 30 mg/dL (NEGATIVE); URINE SPECIFIC GRAVITY 1.014
[2020-06-21] MEDS ORDERED: DOXYCYCLINE HYCLATE 100 MG TABLET PO ONE (23:31)
[2020-06-22 01:28] VITALS: BP 107/70
== END 2020-06-22 01:28 | disposition home health service (06) ==
LOC: ER 19:47
DX: J18.9 Pneumonia, unspecified organism (principal); R50.9 Fever, unspecified; F03.90 Unspecified dementia, unspecified severity, without behavioral disturbance, psychotic disturbance, mood disturbance, and anxiety; Z95.0 Presence of cardiac pacemaker
CPT/HCPCS: 99284; 51701; 36415; 87086; 85025; 80053; 81001; 71045; A9270